=== PATIENT | female | born 1970 | race Caucasian/White ===

== ENCOUNTER 2023-10-26 10:23 | Outpatient (OUT) | payer BC, SELFPAY ==
[2023-10-26 11:02] LABS: Basophils Absolute Auto 0.1 10^3/uL (0.0-0.1); Basophils Percent Auto 1.2 % (0.2-2.0); Eosinophils Absolute Auto 0.2 10^3/uL (0.0-0.7); Eosinophils Percent Auto 2.2 % (0.9-7.0); Hematocrit 42.2 % (36.0-48.0); Hemoglobin 13.2 g/dL (12.0-16.0); Immature Granulocytes Abs Auto 0.04 10^3/uL (0.00-0.03); Immature Granulocytes Pct Auto 0.6 % (0.0-0.5); Lymphocytes Absolute Auto 1.7 10^3/uL (1.2-3.8); Lymphocytes Percent Auto 24.7 % (20.5-60.0); Mean Corpuscular HGB Conc 31.3 g/dL (29.9-35.2); Mean Corpuscular Hemoglobin 28.6 pg (26.7-34.0); Mean Corpuscular Volume 91.5 fL (81.0-99.0); Mean Platelet Volume 8.9 fL (9.5-13.5); Monocytes Absolute Auto 0.5 10^3/uL (0.3-0.8); Monocytes Percent Auto 6.7 % (1.7-12.0); Neutrophils Absolute Auto 4.5 10^3/uL (1.4-6.5); Neutrophils Percent Auto 64.6 % (43.0-75.0); Platelet Count 362 10^3/uL (150-450); Red Blood Count 4.61 10^6/uL (4.20-5.40); Red Cell Distribution Width 13.2 % (11.0-15.0); White Blood Count 6.9 10^3/uL (4.0-11.0)
[2023-10-26 11:26] LABS: Alanine Aminotransferase 47 U/L (14-59); Albumin Globulin Ratio 0.7; Albumin Level 3.1 g/dL (3.4-5.0); Alkaline Phosphatase 75 U/L (46-116); Anion Gap 9.9; Aspartate Amino Transferase 24 U/L (15-37); BUN Creatinine Ratio 10.3; Bilirubin Total 0.5 mg/dL (0.2-1.0); Calcium 8.9 mg/dL (8.5-10.1); Carbon Dioxide 30.9 mmol/L (21.0-32.0); Chloride 106 mmol/L (98-107); Chol HDL Ratio 4.6; Cholesterol 197 mg/dL (<=200); Estimated GFR (African America >60 (>=60); Estimated GFR (Non-African Ame >60 (>=60); Globulin 4.5 g/dL; Glucose 104 mg/dL (74-106); HDL Cholesterol 43 mg/dL (40-60); LDL Cholesterol Calculated 131.8 mg/dL; Potassium 3.8 mmol/L (3.5-5.1); Sodium 143 mmol/L (136-145); Thyroid Stimulating Hormone 5.179 uIU/mL (0.358-3.740); Total Protein 7.6 g/dL (6.4-8.2); Triglycerides 111 mg/dL (<=150); VLDL CHOLESTEROL 22.2 mg/dL
[2023-10-26 12:21] LABS: Estimated Average Glucose 114 mg/dL; Glycohemoglobin A1C 5.6 % (4.5-6.2)
[2023-10-27 14:49] LABS: Occult Blood Negative
== END 2023-10-26 10:24 | disposition home or self-care (01) ==
LOC: LAB 10:27
PROVIDERS: PCP Family Medicine; Visit Provider Family Medicine
DX: Z00.00 Encounter for general adult medical examination without abnormal findings (principal); E78.5 Hyperlipidemia, unspecified; R73.09 Other abnormal glucose; Z12.12 Encounter for screening for malignant neoplasm of rectum; D64.9 Anemia, unspecified; E55.9 Vitamin D deficiency, unspecified
CPT/HCPCS: 36415; 80053; 80061; 82306; 83036; 83540; 84436; 84443; 84481; 85025; G0328

== ENCOUNTER 2023-10-31 07:46 | Outpatient (OUT) | payer BC, SELFPAY ==
--- NOTE | 2023-10-31 07:48 | MM_ITS ---
Patient Name: EUGENE DONOVAN MR#: [id number] : 1970 Exam Date: 10/31/2023 Ordering Doctor: DR Stuart Washington . RADIOLOGY REPORT PROCEDURE: MM TOMOSYNTHESIS SCREENING BI COMPARISON: MG MAMM SCREEN 3D DAVINA CAD, 11/16/2021. MG MAMM SCREEN DAVINA W CAD, 11/15/2020. INDICATIONS: Screening Calculator Name NCI Breast Cancer Risk Assessment Tool 5 Year Breast Cancer Risk 0.80% Lifetime Breast Cancer Risk 6.90% Personal Breast Cancer No Personal Ovarian Cancer No Treatments None Family Cancers Mother with pancreatic cancer at age 71. LOCATION: [facility] BREAST COMPOSITION: Scattered areas fibroglandular density. FINDINGS: DIAGNOSTIC CATEGORY 1--NEGATIVE. NO CHANGE FROM COMPARISON ASSESSMENT. Scattered benign-appearing calcifications are present. Scattered benign-appearing lymph nodes are present. RIGHT BREAST: No significant suspicious finding. LEFT BREAST: No significant suspicious finding. RECOMMENDATIONS: ROUTINE MAMMOGRAM AND CLINICAL EVALUATION IN 12 MONTHS. PLEASE NOTE: A NORMAL MAMMOGRAM DOES NOT EXCLUDE THE POSSIBILITY OF BREAST CANCER. A CLINICALLY SUSPICIOUS PALPABLE LUMP SHOULD BE BIOPSIED. Dictated by: Mick Mccormack MD on 10/31/2023 at 08:26 Approved by: Mick Mccormack MD on 10/31/2023 at 08:27
--- OUTSIDE RECORDS SUMMARY | 2023-10-31 07:49 | XMS_ITS | CCD ---
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 Name Role Phone PHYSICIAN, DEFAULT Unavailable Unavailable PHYSICIAN, DEFAULT Unavailable Unavailable HOY, DR ORTIZ Primary Care Unavailable HOY, DR ORTIZ Admitting Unavailable HOY, DR ORTIZ Attending Unavailable HOY, DR ORTIZ Consulting Unavailable HOY, DR ORTIZ Admitting Unavailable HOY, DR ORTIZ Attending Unavailable HOY, DR ORTIZ Consulting Unavailable HOY, DR ORTIZ Primary Care Unavailable WEST, DR ALONSO Balbuena Consulting Unavailable HOY, DR ORTIZ Primary Care Unavailable KARASIK, DR PERKINS Attending Unavailable KARASIK, DR PERKINS Admitting Unavailable KARASIK, DR PERKINS Consulting Unavailable HOY, DR ORTIZ Admitting Unavailable HOY, DR ORTIZ Attending Unavailable HOY, DR ORTIZ Consulting Unavailable HOY, DR ORTIZ Primary Care Unavailable HOY, DR ORTIZ Primary Care Unavailable KARASIK, DR PERKINS Admitting Unavailable KARASIK, DR PERKINS Attending Unavailable KARASIK, DR PERKINS Consulting Unavailable ZIEBER, DR JAN Saenz Consulting Unavailable Problems Problem Classification Problem Date Documented Date Episodic/Chronic Immunizations and screening for infectious disease (1 source) Encounter for screening for human papillomavirus (HPV); Translations: [ENC SCREENING HUMAN PAPILLOMAVIRUS] Onset: 01-27-2022 Episodic Other screening for suspected conditions (not mental disorders or infectious disease) (8 sources) Encounter for screening for malignant neoplasm of cervix; Translations: [Encounter for screening mammogram for malignant neoplasm of breast] Onset: 11-16-2021 Episodic Residual codes; unclassified (4 sources) Asymptomatic menopausal state; Translations: [ASYMPTOMATIC MENOPAUSAL STATE] Onset: 07-12-2022 Episodic Residual codes; unclassified (1 source) Family history of malignant neoplasm of other organs or systems; Translations: [FAM HX MALIG NEOPLASM OTH ORGN/SYS] Onset: 11-21-2021 Episodic Results Test Name Value Interpretation Reference Range Facility INSULINon 10-20-2022 Insulin 10.1 uIU/mL Normal 2.6-24.9 [facility] Comment on above: Performed By: #### L IPID, TSH, CMP, T7 #### [facility] [address] [address] [address] Merly Larios CBC AUTO DIFFon 10-19-2022 BASO # 0.1 103/ul Normal 0.0-0.1 [facility] Comment on above: Performed By: #### C BC #### [facility] [address] [place] [address] Dr. Merly Larios Basophils/100 WBC (Bld) 1.0 % Normal 0.2-2.0 [facility] Comment on above: Performed By: #### C BC #### [facility] [address] [place] [address] Dr. Merly Larios EO # 0.2 103/ul Normal 0.0-0.7 [facility] Comment on above: Performed By: #### C BC #### [facility] [address] [place] [address] Dr. Merly Larios Eosinophils/100 WBC (Bld) 2.6 % Normal 0.9-7.0 [facility] Comment on above: Performed By: #### C BC #### [facility] [address] [place] [address] Dr. Merly Larios Erythrocyte distribution width (RBC) [Ratio] 12.8 % Normal 11.0-15.0 [facility] Comment on above: Performed By: #### C BC #### [facility] [address] [place] [address] Dr. Merly Larios Hematocrit (Bld) [Volume fraction] 47.7 % Normal 36.0-48.0 [facility] Comment on above: Performed By: #### C BC #### [facility] [address] [place] [address] Dr. Merly Larios Hemoglobin (Bld) [Mass/Vol] 15.0 g/dL Normal 12.0-16.0 [facility] Comment on above: Performed By: #### C BC #### [facility] [address] [place] [address] Dr. Merly Larios IG # 0.02 10e3/ul Normal 0.00-0.03 [facility] Comment on above: Performed By: #### C BC #### [facility] [address] [place] [address] Dr. Merly Larios IG % 0.3 % Normal 0.0-0.5 [facility] Comment on above: Performed By: #### C BC #### [facility] [address] [place] [address] Dr. Merly Larios LYMPH # 1.5 103/ul Normal 1.2-3.8 [facility] Comment on above: Performed By: #### C BC #### [facility] [address] [place] [address] Dr. Merly Larios Lymphocytes/100 WBC (Bld) 26.0 % Normal 20.5-60.0 [facility] Comment on above: Performed By: #### C BC #### [facility] [address] [place] [address] Dr. Merly Larios MANUAL DIFF REQ NO Normal [facility] Comment on above: Performed By: #### C BC #### [facility] [address] [place] [address] Dr. Merly Larios MCH (RBC) [Entitic mass] 28.7 pg Normal 26.7-34.0 [facility] Comment on above: Performed By: #### C BC #### [facility] [address] [place] [address] Dr. Merly Larios MCHC (RBC) [Mass/Vol] 31.4 g/dL Normal 29.9-35.2 [facility] Comment on above: Performed By: #### C BC #### [facility] [address] [place] [address] Dr. Merly Larios MCV (RBC) [Entitic vol] 91.2 fL Normal 81.0-99.0 [facility] Comment on above: Performed By: #### C BC #### [facility] [address] [place] [address] Dr. Merly Larios MONO # 0.6 103/ul Normal 0.3-0.8 [facility] Comment on above: Performed By: #### C BC #### [facility] [address] [place] [address] Dr. Merly Larios Monocytes/100 WBC (Bld) 9.8 % Normal 1.7-12.0 [facility] Comment on above: Performed By: #### C BC #### [facility] [address] [place] [address] Dr. Merly Larios NEUT # 3.5 103/ul Normal 1.4-6.5 [facility] Comment on above: Performed By: #### C BC #### [facility] [address] [place] [address] Dr. Merly Larios Neutrophils/100 WBC (Bld) 60.3 % Normal 43.0-75.0 [facility] Comment on above: Performed By: #### C BC #### [facility] [address] [place] [address] Dr. Merly Larios Platelet mean volume (Bld) [Entitic vol] 9.8 fL Normal 9.5-13.5 [facility] Comment on above: Performed By: #### C BC #### [facility] [address] [place] [address] Dr. Merly Larios PLT 236 103/ul Normal 150-450 [facility] Comment on above: Performed By: #### C BC #### [facility] [address] [place] [address] Dr. Merly Larios RBC 5.23 106/ul Normal 4.20-5.40 [facility] Comment on above: Performed By: #### C BC #### [facility] [address] [place] [address] Dr. Merly Larios WBC 5.7 103/ul Normal 4.0-11.0 [facility] Comment on above: Performed By: #### C BC #### [facility] [address] [place] [address] Dr. Merly Larios FREE THYROXINE INDEX T7on FTI 3.89 Normal 1.30-4.50 [facility] Comment on above: Performed By: #### L IPID, TSH, CMP, T7 #### [facility] [address] [address] [address] Merly Larios T3U 35.0 % Normal 30.0-39.0 [facility] Comment on above: Performed By: #### L IPID, TSH, CMP, T7 #### [facility] [address] [place] [address] Dr. Merly Larios T4 [Mass/Vol] 11.10 ug/dL Normal 4.80-13.90 [facility] Comment on above: Performed By: #### L IPID, TSH, CMP, T7 #### [facility] [address] [address] [address] Merly Larios GLYCOHEMOGLOBIN A1Con 2022 ADA RECOMMENDATION SEE BELOW Normal [facility] Comment on above: Result Comment: ADA RECOMMENDED LIMIT 4.0 - 6.0 ADA THERAPEUTIC TARGET < 7.0 ACTION SUGGESTED > 7.0 Performed By: #### A 1C #### [facility] [address] [place] [address] Dr. Merly Larios Glucose [Mass/Vol] 103 mg/dL Normal [facility] Comment on above: Performed By: #### A 1C #### [facility] [address] [address] [address] Merly Larios HbA1c (Bld) [Mass fraction] 5.2 % Normal 4.5-6.2 [facility] Comment on above: Performed By: #### A 1C #### [facility] [address] [address] [address] Merly Larios IRONon 10-19-2022 Iron [Mass/Vol] 123.0 ug/dL Normal 50.0-170.0 [facility] Comment on above: Performed By: #### L IPID, TSH, CMP, T7 #### [facility] [address] [address] [address] Merly Larios LIPID PROFILEon 10-19-2022 CHOL-HDL RATIO NORM SEE BELOW Normal [facility] Comment on above: Result Comment: 3.3 - 4.4 LOW RISK 4.4 - 7.1 AVERAGE RISK 7.1 - 11.0 MODERATE RISK >11.0 HIGH RISK Performed By: #### L IPID, TSH, CMP, T7 #### [facility] [address] [address] [address] Merly Larios Cholesterol [Mass/Vol] 177 mg/dL Normal <=200 [facility] Comment on above: Performed By: #### L IPID, TSH, CMP, T7 #### [facility] [address] [address] [address] Merly Larios Cholesterol in HDL [Mass/Vol] 53 mg/dL Normal 40-60 [facility] Comment on above: Performed By: #### L IPID, TSH, CMP, T7 #### [facility] [address] [address] [address] Merly Larios Cholesterol in LDL [Mass/Vol] 105.4 mg/dL Normal [facility] Comment on above: Performed By: #### L IPID, TSH, CMP, T7 #### [facility] [address] [address] [address] Merly Larios Cholesterol.total/Cho lesterol in HDL [Mass ratio] 3.3 {ratio} Normal [facility] Comment on above: Performed By: #### L IPID, TSH, CMP, T7 #### [facility] [address] [address] [address] Merly Larios HDL NORMAL > or = 60 mg/dl - LO W CARDIOVASCULAR RISK <40 mg/dl - HIGH CARDIOVASCULAR RISK Normal [facility] Comment on above: Performed By: #### L IPID, TSH, CMP, T7 #### [facility] [address] [address] [address] Merly Larios LDL CALC NORMAL SEE BELOW Normal [facility] Comment on above: Result Comment: <100 mg/dl OPTIMAL 100 - 129 mg/dl NEAR OR ABOVE OPTIMAL 130 - 159 mg/dl BORDERLINE HIGH 160 - 189 mg/dl HIGH >190 mg/dl VERY HIGH Performed By: #### L IPID, TSH, CMP, T7 #### [facility] [address] [address] [address] Merly Larios Triglyceride [Mass/Vol] 93 mg/dL Normal <=150 [facility] Comment on above: Performed By: #### L IPID, TSH, CMP, T7 #### [facility] [address] [place] [address] Dr. Merly Larios VLDL CALC 18.6 mg/dL Normal [facility] Comment on above: Performed By: #### L IPID, TSH, CMP, T7 #### [facility] [address] [place] [address] Dr. Merly Larios OCC BLD IMMUNO SCREENon 10-08 OCCULT BLOOD Negative Normal NEGATIVE [facility] Comment on above: Performed By: #### O BSCRN #### [facility] [address] [place] [address] Dr. Merly Larios PROF 14(COMP METB)on 023 Albumin [Mass/Vol] 4.0 g/dL Normal 3.4-5.0 [facility] Comment on above: Performed By: #### L IPID, TSH, CMP, T7 #### [facility] [address] [place] [address] Dr. Merly Larios Albumin/Globulin [Mass ratio] 1.0 {ratio} Normal [facility] Comment on above: Performed By: #### L IPID, TSH, CMP, T7 #### [facility] [address] [place] [address] Dr. Merly Larios ALP [Catalytic activity/Vol] 104 U/L Normal 46-116 [facility] Comment on above: Performed By: #### L IPID, TSH, CMP, T7 #### [facility] [address] [place] [address] Dr. Merly Larios ALT [Catalytic activity/Vol] 24 U/L Normal 14-59 [facility] Comment on above: Performed By: #### L IPID, TSH, CMP, T7 #### [facility] [address] [place] [address] Dr. Merly Larios Anion gap [Moles/Vol] 12.8 mmol/L Normal [facility] Comment on above: Performed By: #### L IPID, TSH, CMP, T7 #### [facility] [address] [address] [address] Merly Larios AST [Catalytic activity/Vol] 17 U/L Normal 15-37 [facility] Comment on above: Performed By: #### L IPID, TSH, CMP, T7 #### [facility] [address] [address] [address] Merly Larios Bilirubin [Mass/Vol] 0.6 mg/dL Normal 0.2-1.0 [facility] Comment on above: Performed By: #### L IPID, TSH, CMP, T7 #### [facility] [address] [place] [address] Dr. Merly Larios Calcium [Mass/Vol] 9.4 mg/dL Normal 8.5-10.1 [facility] Comment on above: Performed By: #### L IPID, TSH, CMP, T7 #### [facility] [address] [address] [address] Merly Larios Chloride [Moles/Vol] 105 mmol/L Normal 98-107 [facility] Comment on above: Performed By: #### L IPID, TSH, CMP, T7 #### [facility] [address] [address] [address] Merly Larios CO2 [Moles/Vol] 28.3 mmol/L Normal 21.0-32.0 [facility] Comment on above: Performed By: #### L IPID, TSH, CMP, T7 #### [facility] [address] [address] [address] Merly Larios Creatinine [Mass/Vol] 0.75 mg/dL Normal 0.55-1.02 [facility] Comment on above: Performed By: #### L IPID, TSH, CMP, T7 #### [facility] [address] [address] [address] Merly Larios EGFR-AF LIBERIAN >60 Normal >=60 [facility] Comment on above: Performed By: #### L IPID, TSH, CMP, T7 #### [facility] [address] [address] [address] Merly Larios EGFR-NON AF LIBERIAN >60 Normal >=60 [facility] Comment on above: Performed By: #### L IPID, TSH, CMP, T7 #### [facility] [address] [place] [address] Dr. Merly Larios Globulin (S) [Mass/Vol] 3.9 g/dL Normal [facility] Comment on above: Performed By: #### L IPID, TSH, CMP, T7 #### [facility] [address] [place] [address] Dr. Merly Larios Glucose [Mass/Vol] 102 mg/dL Normal 74-106 [facility] Comment on above: Performed By: #### L IPID, TSH, CMP, T7 #### [facility] [address] [place] [address] Dr. Merly Larios Potassium [Moles/Vol] 4.1 mmol/L Normal 3.5-5.1 [facility] Comment on above: Performed By: #### L IPID, TSH, CMP, T7 #### [facility] [address] [place] [address] Dr. Merly Larios Protein [Mass/Vol] 7.9 g/dL Normal 6.4-8.2 [facility] Comment on above: Performed By: #### L IPID, TSH, CMP, T7 #### [facility] [address] [address] [address] Merly Larios Sodium [Moles/Vol] 142 mmol/L Normal 136-145 [facility] Comment on above: Performed By: #### L IPID, TSH, CMP, T7 #### [facility] [address] [place] [address] Dr. Merly Larios Urea nitrogen [Mass/Vol] 14.0 mg/dL Normal 7.0-18.0 [facility] Comment on above: Performed By: #### L IPID, TSH, CMP, T7 #### [facility] [address] [place] [address] Dr. Merly Larios Urea nitrogen/Creatinine [Mass ratio] 18.7 mg/mg Normal [facility] Comment on above: Performed By: #### L IPID, TSH, CMP, T7 #### [facility] [address] [address] [address] Merly Larios TSHon 10-19-2022 TSH 0.287 uIU/mL Critically low 0.358-3.740 [facility] Comment on above: Performed By: #### L IPID, TSH, CMP, T7 #### [facility] [address] [address] [address] Merly Larios XR DEXA BONE DENSITYon 07-12 XR DEXA BONE DENSITY EXAMINATION: XR DEX A BONE DENSITY, 07/12/2022 9:07 AM EDT HISTORY: Menopause present COMPARISON: None. TECHNIQUE: Dual-energy X-ray absorptiometry (DEXA) bone density study performed for the axial skeleton. FINDINGS: SPINE ANALYSIS: Average bone mineral density is 1.298 g/cm2. T-score (standard deviation relative to young adult mean): 1.0 . HIP ANALYSIS: Lowest bone mineral density is within the right femoral trochanter, 0.853 g/cm2. T-score (standard deviation relative to young adult mean): 0.0 . IMPRESSION: [employer] Classification: Normal - Low Fracture Risk Electronically authenticated by: JAN REYES Date: 2022-07-12 09:33 [facility] PAP ACOG PANEL 2: 30 to 65on 02-01-2022 . . Normal [facility] Comment on above: Result Comment: Perf ormed at: WB Performed By: #### [id number] #### [facility] [address] [place] [address] Dr. Merly Larios Age Gdln ACOG Testing 30-66 [facility] Comment on above: Performed By: #### [id number] #### [facility] [address] [address] [address] Merly Larios DIAGNOSIS: Comment [facility] Comment on above: Result Comment: NEGA TIVE FOR INTRAEPITHELIAL LESION OR MALIGNANCY. Performed at: WB Performed By: #### [id number] #### [facility] [address] [place] [address] Dr. Merly Larios HPV Aptima Negative Normal Negative [facility] Comment on above: Result Comment: This nucleic acid amplification test detects fourteen high-risk HPV types (16,18,31,33,35,39,45,51,52,56,58,59,66,68) without differentiation. Performed at: =G Performed By: #### [id number] #### [facility] [address] [place] [address] Dr. Merly Larios Methodology: CTIM Normal [facility] Comment on above: Result Comment: The Thin Prep(R) Fuel Pilot Engineer was unable to read this specimen. Therefore a manual review was performed. Performed at: WB Performed By: #### [id number] #### [facility] [address] [place] [address] Dr. Merly Larios Note: Comment Normal [facility] Comment on above: Result Comment: The Pap smear is a screening test designed to aid in the detection of premalignant and malignant conditions of the uterine cervix. It is not a diagnostic procedure and should not be used as the sole means of detecting cervical cancer. Both false-positive and false-negative reports do occur. . Performed at: WB Performed By: #### [id number] #### [facility] [address] [place] [address] Dr. Merly Larios Performed by: Comment Normal [facility] Comment on above: Result Comment: Shaq Carvalho, Optical Lab Technician (ASCP) Performed at: WB Performed By: #### [id number] #### [facility] [address] [place] [address] Dr. Merly Larios Specimen adequacy: Comment Normal [facility] Comment on above: Result Comment: Sati sfactory for evaluation. Endocervical and/or squamous metaplastic cells (endocervical component) are present. Performed at: WB Performed By: #### [id number] #### [facility] [address] [place] [address] Dr. Merly Larios MG MAMM SCREEN 3D DAVINA CADon 11-16-2021 MG MAMM SCREEN 3D DAVINA CAD Patient: EUGENE DONOVAN Exam Date: 11/16/2021 : 1970 Gender:F Ordering : DR ANGEL MAXWELL . Admission #: [id number] Family : Order #: [id number] CLICK HERE TO VIEW EXAM RADIOLOGY REPORT PROCEDURE: MAMMOGRAM SCREENING 3D BILATERAL CAD COMPARISON: MG MAMM SCREEN DAVINA W CAD, 08/30/2018. MG MAMM SCREEN DAVINA W CAD, 11/15/2020. INDICATIONS: Screening mammography Calculator Name NCI Breast Cancer Risk Assessment Tool 5 Year Breast Cancer Risk 0.80% Lifetime Breast Cancer Risk 7.10% Personal Breast Cancer No Personal Ovarian Cancer No Treatments None Family Cancers Mother with pancreatic cancer at age 71. LOCATION: [facility] BREAST COMPOSITION: Scattered areas fibroglandular density. FINDINGS: DIAGNOSTIC CATEGORY 1--NEGATIVE. NO CHANGE FROM COMPARISON ASSESSMENT. Scattered benign-appearing calcifications are present. Scattered benign-appearing lymph nodes are present. RIGHT BREAST: No significant suspicious finding. LEFT BREAST: No significant suspicious finding. RECOMMENDATIONS: ROUTINE MAMMOGRAM AND CLINICAL EVALUATION IN 12 MONTHS. PLEASE NOTE: A NORMAL MAMMOGRAM DOES NOT EXCLUDE THE POSSIBILITY OF BREAST CANCER. A CLINICALLY SUSPICIOUS PALPABLE LUMP SHOULD BE BIOPSIED. Dictated by: Alonso Mccormack MD on 11/16/2021 at 09:03 Approved by: Alonso Mccormack MD on 11/16/2021 at 09:14 Normal [facility] INSULINon 10-26-2021 Insulin 13.6 uIU/mL Normal 2.6-24.9 [facility] Comment on above: Performed By: #### L IPID, TSH, CMP, T7 #### [facility] [address] [address] [address] Merly Larios CBC AUTO DIFFon 10-25-2021 BASO # 0.1 103/ul Normal 0.0-0.1 [facility] Comment on above: Performed By: #### L IPID, TSH, CMP, T7 #### [facility] [address] [address] [address] Merly Larios Basophils/100 WBC (Bld) 1.1 % Normal 0.2-2.0 [facility] Comment on above: Performed By: #### L IPID, TSH, CMP, T7 #### [facility] [address] [place] [address] Dr. Merly Larios EO # 0.2 103/ul Normal 0.0-0.7 [facility] Comment on above: Performed By: #### L IPID, TSH, CMP, T7 #### [facility] [address] [place] [address] Dr. Merly Larios Eosinophils/100 WBC (Bld) 3.0 % Normal 0.9-7.0 [facility] Comment on above: Performed By: #### L IPID, TSH, CMP, T7 #### [facility] [address] [place] [address] Dr. Merly Larios Erythrocyte distribution width (RBC) [Ratio] 12.7 % Normal 11.0-15.0 [facility] Comment on above: Performed By: #### L IPID, TSH, CMP, T7 #### [facility] [address] [place] [address] Dr. Merly Larios Hematocrit (Bld) [Volume fraction] 43.6 % Normal 36.0-48.0 [facility] Comment on above: Performed By: #### L IPID, TSH, CMP, T7 #### [facility] [address] [place], [place] [address] Dr. Merly Larios Hemoglobin (Bld) [Mass/Vol] 14.2 g/dL Normal 12.0-16.0 [facility] Comment on above: Performed By: #### L IPID, TSH, CMP, T7 #### [facility] [address] [place] [address] Dr. Merly Larios IG # 0.01 10e3/ul Normal 0.00-0.03 [facility] Comment on above: Performed By: #### L IPID, TSH, CMP, T7 #### [facility] [address] [place] [address] Dr. Merly Larios IG % 0.2 % Normal 0.0-0.5 [facility] Comment on above: Performed By: #### L IPID, TSH, CMP, T7 #### [facility] [address] [place] [address] Dr. Merly Larios LYMPH # 1.5 103/ul Normal 1.2-3.8 [facility] Comment on above: Performed By: #### L IPID, TSH, CMP, T7 #### [facility] [address] [address] [address] Merly Larios Lymphocytes/100 WBC (Bld) 27.5 % Normal 20.5-60.0 [facility] Comment on above: Performed By: #### L IPID, TSH, CMP, T7 #### [facility] [address] [place] [address] Dr. Merly Larios MANUAL DIFF REQ NO Normal [facility] Comment on above: Performed By: #### L IPID, TSH, CMP, T7 #### [facility] [address] [place] [address] Dr. Merly Larios MCH (RBC) [Entitic mass] 28.3 pg Normal 26.7-34.0 [facility] Comment on above: Performed By: #### L IPID, TSH, CMP, T7 #### [facility] [address] [place] [address] Dr. Merly Larios MCHC (RBC) [Mass/Vol] 32.6 g/dL Normal 29.9-35.2 [facility] Comment on above: Performed By: #### L IPID, TSH, CMP, T7 #### [facility] [address] [place] [address] Dr. Merly Larios MCV (RBC) [Entitic vol] 87.0 fL Normal 81.0-99.0 [facility] Comment on above: Performed By: #### L IPID, TSH, CMP, T7 #### [facility] [address] [place] [address] Dr. Merly Larios MONO # 0.5 103/ul Normal 0.3-0.8 [facility] Comment on above: Performed By: #### L IPID, TSH, CMP, T7 #### [facility] [address] [place] [address] Dr. Merly Larios Monocytes/100 WBC (Bld) 9.1 % Normal 1.7-12.0 [facility] Comment on above: Performed By: #### L IPID, TSH, CMP, T7 #### [facility] [address] [address] [address] Merly Larios NEUT # 3.1 103/ul Normal 1.4-6.5 [facility] Comment on above: Performed By: #### L IPID, TSH, CMP, T7 #### [facility] [address] [address] [address] Merly Larios Neutrophils/100 WBC (Bld) 59.1 % Normal 43.0-75.0 [facility] Comment on above: Performed By: #### L IPID, TSH, CMP, T7 #### [facility] [address] [place] [address] Dr. Merly Larios Platelet mean volume (Bld) [Entitic vol] 9.5 fL Normal 9.5-13.5 [facility] Comment on above: Performed By: #### L IPID, TSH, CMP, T7 #### [facility] [address] [place] [address] Dr. Merly Larios PLT 208 103/ul Normal 150-450 [facility] Comment on above: Performed By: #### L IPID, TSH, CMP, T7 #### [facility] [address] [place] [address] Dr. Mrely Larios RBC 5.01 106/ul Normal 4.20-5.40 [facility] Comment on above: Performed By: #### L IPID, TSH, CMP, T7 #### [facility] [address] [place] [address] Dr. Merly Larios WBC 5.3 103/ul Normal 4.0-11.0 [facility] Comment on above: Performed By: #### L IPID, TSH, CMP, T7 #### [facility] [address] [place] [address] Dr. Merly Larios FREE THYROXINE INDEX T7on FTI 3.65 Normal [facility] Comment on above: Performed By: #### L IPID, TSH, CMP, T7 #### [facility] [address] [address] [address] Merly Larios T3U 32.0 % Normal 23.5-40.5 [facility] Comment on above: Performed By: #### L IPID, TSH, CMP, T7 #### [facility] [address] [address] [address] Merly Larios T4 [Mass/Vol] 11.40 ug/dL Critically high 5.53-11.00 [facility] Comment on above: Performed By: #### L IPID, TSH, CMP, T7 #### [facility] [address] [address] [address] Merly Larios GLYCOHEMOGLOBIN A1Con 2021 ADA RECOMMENDATION ADA THERAPEUTIC TARGET 6.0 - 7.0 ACTION SUGGESTED > 7.0 Normal [facility] Comment on above: Performed By: #### A 1C #### [facility] [address] [address] [address] Merly Larios Glucose [Mass/Vol] 105 mg/dL Normal [facility] Comment on above: Performed By: #### A 1C #### [facility] [address] [address] [address] Merly Larios HbA1c (Bld) [Mass fraction] 5.3 % Normal <=6.0 [facility] Comment on above: Performed By: #### A 1C #### [facility] [address] [address] [address] Merly Larios IRONon 10-25-2021 Iron [Mass/Vol] 99.0 ug/dL Normal 37.0-170.0 [facility] Comment on above: Performed By: #### L IPID, TSH, CMP, T7 #### [facility] [address] [address] [address] Merly Larios LIPID PROFILEon 10-25-2021 CHOL-HDL RATIO NORM SEE BELOW Normal [facility] Comment on above: Result Comment: 3.3 - 4.4 LOW RISK 4.4 - 7.1 AVERAGE RISK 7.1 - 11.0 MODERATE RISK >11.0 HIGH RISK Performed By: #### L IPID, TSH, CMP, T7 #### [facility] [address] [address] [address] Merly Larios Cholesterol [Mass/Vol] 174 mg/dL Normal <=200 [facility] Comment on above: Performed By: #### L IPID, TSH, CMP, T7 #### [facility] [address] [address] [address] Merly Larios Cholesterol in HDL [Mass/Vol] 50 mg/dL Normal [facility] Comment on above: Performed By: #### L IPID, TSH, CMP, T7 #### [facility] [address] [address] [address] Merly Larios Cholesterol in LDL [Mass/Vol] 105.2 mg/dL Normal [facility] Comment on above: Performed By: #### L IPID, TSH, CMP, T7 #### [facility] [address] [address] [address] Merly Larios Cholesterol.total/Cho lesterol in HDL [Mass ratio] 3.5 {ratio} Normal [facility] Comment on above: Performed By: #### L IPID, TSH, CMP, T7 #### [facility] [address] [address] [address] Merly Larios HDL NORMAL > or = 60 mg/dl - LO W CARDIOVASCULAR RISK <40 mg/dl - HIGH CARDIOVASCULAR RISK Normal [facility] Comment on above: Performed By: #### L IPID, TSH, CMP, T7 #### [facility] [address] [address] [address] Merly Larios LDL CALC NORMAL SEE BELOW Normal [facility] Comment on above: Result Comment: <100 mg/dl OPTIMAL 100 - 129 mg/dl NEAR OR ABOVE OPTIMAL 130 - 159 mg/dl BORDERLINE HIGH 160 - 189 mg/dl HIGH >190 mg/dl VERY HIGH Performed By: #### L IPID, TSH, CMP, T7 #### [facility] [address] [address] [address] Merly Larios Triglyceride [Mass/Vol] 94 mg/dL Normal <=150 [facility] Comment on above: Performed By: #### L IPID, TSH, CMP, T7 #### [facility] [address] [address] [address] Merly Larios VLDL CALC 18.8 mg/dL Normal [facility] Comment on above: Performed By: #### L IPID, TSH, CMP, T7 #### [facility] [address] [address] [address] Merly Larios OCC BLD IMMUNO SCREENon 10-08 OCCULT BLOOD Negative Normal NEGATIVE [facility] Comment on above: Performed By: #### O BSCRN #### [facility] [address] [address] [address] Merly Larios PROF 14(COMP METB)on 022 Albumin [Mass/Vol] 3.8 g/dL Normal 3.5-5.0 [facility] Comment on above: Performed By: #### L IPID, TSH, CMP, T7 #### [facility] [address] [place] [address] Dr. Merly Larios Albumin/Globulin [Mass ratio] 1.0 {ratio} Normal [facility] Comment on above: Performed By: #### L IPID, TSH, CMP, T7 #### [facility] [address] [address] [address] Merly Larios ALP [Catalytic activity/Vol] 98 U/L Normal 38-126 [facility] Comment on above: Performed By: #### L IPID, TSH, CMP, T7 #### [facility] [address] [address] [address] Merly Larios ALT [Catalytic activity/Vol] 30 U/L Normal 9-52 [facility] Comment on above: Performed By: #### L IPID, TSH, CMP, T7 #### [facility] [address] [address] [address] Merly Larios Anion gap [Moles/Vol] 14.1 mmol/L Normal [facility] Comment on above: Performed By: #### L IPID, TSH, CMP, T7 #### [facility] [address] [address] [address] Merly Larios AST [Catalytic activity/Vol] 16 U/L Normal 14-36 [facility] Comment on above: Performed By: #### L IPID, TSH, CMP, T7 #### [facility] [address] [address] [address] Merly Larios Bilirubin [Mass/Vol] 0.4 mg/dL Normal 0.2-1.3 [facility] Comment on above: Performed By: #### L IPID, TSH, CMP, T7 #### [facility] [address] [address] [address] Merly Larios Calcium [Mass/Vol] 9.8 mg/dL Normal 8.4-10.2 [facility] Comment on above: Performed By: #### L IPID, TSH, CMP, T7 #### [facility] [address] [place] [address] Dr. Merly Larios Chloride [Moles/Vol] 106 mmol/L Normal 98-107 [facility] Comment on above: Performed By: #### L IPID, TSH, CMP, T7 #### [facility] [address] [place] [address] Dr. Merly Larios CO2 [Moles/Vol] 26.1 mmol/L Normal 22.0-30.0 [facility] Comment on above: Performed By: #### L IPID, TSH, CMP, T7 #### [facility] [address] [place] [address] Dr. Merly Larios Creatinine [Mass/Vol] 0.80 mg/dL Normal 0.52-1.04 [facility] Comment on above: Performed By: #### L IPID, TSH, CMP, T7 #### [facility] [address] [place] [address] Dr. Merly Larios EGFR-AF LIBERIAN >60 Normal >=60 [facility] Comment on above: Performed By: #### L IPID, TSH, CMP, T7 #### [facility] [address] [place] [address] Dr. Merly Larios EGFR-NON AF LIBERIAN >60 Normal >=60 [facility] Comment on above: Performed By: #### L IPID, TSH, CMP, T7 #### [facility] [address] [place] [address] Dr. Merly Larios Globulin (S) [Mass/Vol] 3.8 g/dL Normal [facility] Comment on above: Performed By: #### L IPID, TSH, CMP, T7 #### [facility] [address] [place] [address] Dr. Merly Larios Glucose [Mass/Vol] 109 mg/dL Critically high 74-106 T [facility] Comment on above: Performed By: #### L IPID, TSH, CMP, T7 #### [facility] [address] [place] [address] Dr. Merly Larios Potassium [Moles/Vol] 4.2 mmol/L Normal 3.4-5.0 [facility] Comment on above: Performed By: #### L IPID, TSH, CMP, T7 #### [facility] [address] [place] [address] Dr. Merly Larios Protein [Mass/Vol] 7.6 g/dL Normal 6.1-8.2 [facility] Comment on above: Performed By: #### L IPID, TSH, CMP, T7 #### [facility] [address] [place] [address] Dr. Merly Larios Sodium [Moles/Vol] 142 mmol/L Normal 137-145 [facility] Comment on above: Performed By: #### L IPID, TSH, CMP, T7 #### [facility] [address] [place] [address] Dr. Merly Larios Urea nitrogen [Mass/Vol] 13.0 mg/dL Normal 7.0-17.0 [facility] Comment on above: Performed By: #### L IPID, TSH, CMP, T7 #### [facility] [address] [place] [address] Dr. Merly Larios Urea nitrogen/Creatinine [Mass ratio] 16.2 mg/mg Normal [facility] Comment on above: Performed By: #### L IPID, TSH, CMP, T7 #### [facility] [address] [place] [address] Dr. Merly Larios TSHon 10-25-2021 TSH 0.315 uIU/mL Critically low 0.470-4.680 [facility] Comment on above: Performed By: #### L IPID, TSH, CMP, T7 #### [facility] [address] [place], [place] [address] Dr. Merly Larios TSH RANGE SEE BELOW Normal [facility] Comment on above: Result Comment: <0.3 4 UIU/ml HYPERTHYROID 0.34-5.60 UIU/ml EUTHYROID >5.60 UIU/ml HYPOTHYROID Performed By: #### L IPID, TSH, CMP, T7 #### [facility] [address] [place], [place] [address] Dr. Merly Larios Encounters Encounter Date Encounter Type Care Provider Facility Start: 10-19-2022 End: 10-20-[address] ANGEL MAXWELL Facility:[facility] Start: 07-12-2022 End: 07-13-[address] ANGEL MAXWELL Facility:[facility] Start: 01-26-2022 End: 01-26-[address] ANGEL MAXWELL Facility:[facility] Start: 11-16-2021 End: 11-17-[address] ANGEL MAXWELL Facility:[facility] Start: 10-27-2021 Encounter for genera l adult medical examination without abnormal findings DR ANGEL MAXWELL [facility] Start: 10-25-2021 End: 10-26-[address] ANGEL MAXWELL Facility:[facility] Start: 10-25-2021 End: 10-26-2021 Encounter for general adult medical examination without abnormal findings DR ANGEL MAXWELL Facility:[facility] Start: 04-08-2018 End: 04-09-2018 Ambulatory DEFAULT PHYSICIAN Facility:[facility] Payers Date Payer Category Payer Unknown [id number] 2.16.84 [id number] 1971 Unknown [id number] 2.16.84 [id number] 1971 Unknown [id number] 2.16.84 [id number] 1971 Unknown [id number] 2.16.84 [id number] 1971 Unknown [id number] 2.16.84 [id number] 1959 Private Health Insurance [id number] 1958 Unknown [id number] Unknown Summary Purpose Family History No Family History Records FoundNo Family History Records Found Advance Directives No Advanced Directives Records FoundNo Advanced Directives Records Found Additional Source Comments INFORMATION SOURCE (unrecogn ized section and content) DATE CREATED AUTHOR 04/09/2018 [facility] [place] [facility] DATE CREATED AUTHOR AUTHOR'S ORGANIZ ATION 10/20/2022 [facility] FOR RECORDS PERTAINING TO PATIENTS WHO ARE OR HAVE BEEN ENROLLED IN A CHEMICAL DEPENDENCY/SUBSTANCEABUSE PROGRAM, SOME INFORMATION MAY BE OMITTED. This clinical summary was aggregated from multiple sources. Caution should be exercised in using it in the provision of clinical care. This summary normalizes information from multiple sources, and as a consequence, information in this document may materially change the coding, format and clinical context of patient data. In addition, data may be omitted in some cases. CLINICAL DECISIONS SHOULD BE BASED ON THE PRIMARY CLINICAL RECORDS. [facility]. provides no warranty or guarantee of the accuracy or completeness of information in this document.
== END 2023-10-31 07:47 | disposition home or self-care (01) ==
LOC: MAMMO 07:46
PROVIDERS: PCP Family Medicine; Visit Provider Family Medicine
DX: Z00.00 Encounter for general adult medical examination without abnormal findings (principal); Z12.31 Encounter for screening mammogram for malignant neoplasm of breast; Z80.8 Family history of malignant neoplasm of other organs or systems
CPT/HCPCS: 77063; 77067

== ENCOUNTER 2023-11-27 07:47 | Outpatient (OUT) | payer BC, SELFPAY ==
--- OUTSIDE RECORDS SUMMARY | 2023-11-27 07:54 | XMS_ITS | CCD ---
Author Name Unknown Address [facility] [address] [place] [address] Organization [facility] Care Team Providers Care Paralegal Specialist Name Role Phone PHYSICIAN, DEFAULT Unavailable Unavailable [...] INSULINon 10-20-2022 Insulin 10.1 uIU/mL Normal 2.6-24.9 [facility] Comment on above: Performed By: #### L IPID, TSH, CMP, T7 #### [facility] [address] [address] [address] Merly Larios CBC AUTO DIFFon 10-19-2022 BASO # 0.1 103/ul Normal 0.0-0.1 [facility] Comment on above: Performed By: #### C BC #### [facility] [address] [place] [address] Dr. Merly Larios Basophils/100 WBC (Bld) 1.0 % Normal 0.2-2.0 [facility] Comment on above: Performed By: #### C BC #### [facility] [address] [place] [address] Dr. Merly Larios EO # 0.2 103/ul Normal 0.0-0.7 [facility] Comment on above: Performed By: #### C BC #### [facility] [address] [place] [address] Dr. Merly Larios Eosinophils/100 WBC (Bld) 2.6 % Normal 0.9-7.0 [facility] Comment on above: Performed By: #### C BC #### [facility] [address] [place] [address] Dr. eMrly Larios Erythrocyte distribution width (RBC) [Ratio] 12.8 % Normal 11.0-15.0 [facility] Comment on above: Performed By: #### C BC #### [facility] [address] [place] [address] Dr. Merly Larios Hematocrit (Bld) [Volume fraction] 47.7 % Normal 36.0-48.0 [facility] Comment on above: Performed By: #### C BC #### [facility] [address] [place] [address] Dr. Merly Larios Hemoglobin (Bld) [Mass/Vol] 15.0 g/dL Normal 12.0-16.0 [facility] Comment on above: Performed By: #### C BC #### [facility] [address] [place] [address] Dr. Merly Larios IG # 0.02 10e3/ul Normal 0.00-0.03 [facility] Comment on above: Performed By: #### C BC #### [facility] [address] [place] [address] Dr. Merly Larios IG % 0.3 % Normal 0.0-0.5 [facility] Comment on above: Performed By: #### C BC #### [facility] [address] [place] [address] Dr. Merly Larios LYMPH # 1.5 103/ul Normal 1.2-3.8 [facility] Comment on above: Performed By: #### C BC #### [facility] [address] [place] [address] Dr. Merly Larios Lymphocytes/100 WBC (Bld) 26.0 % Normal 20.5-60.0 [facility] Comment on above: Performed By: #### C BC #### [facility] [address] [place] [address] Dr. Merly Larios MANUAL DIFF REQ NO Normal [facility] Comment on above: Performed By: #### C BC #### [facility] [address] [place] [address] Dr. Merly Larios MCH (RBC) [Entitic mass] 28.7 pg Normal 26.7-34.0 [facility] Comment on above: Performed By: #### C BC #### [facility] [address] [place] [address] Dr. Merly Larios MCHC (RBC) [Mass/Vol] 31.4 g/dL Normal 29.9-35.2 [facility] Comment on above: Performed By: #### C BC #### [facility] [address] [place] [address] Dr. Merly Larios MCV (RBC) [Entitic vol] 91.2 fL Normal 81.0-99.0 [facility] Comment on above: Performed By: #### C BC #### [facility] [address] [place] [address] Dr. Merly Larios MONO # 0.6 103/ul Normal 0.3-0.8 [facility] Comment on above: Performed By: #### C BC #### [facility] [address] [place] [address] Dr. Merly Larios Monocytes/100 WBC (Bld) 9.8 % Normal 1.7-12.0 [facility] Comment on above: Performed By: #### C BC #### [facility] [address] [place] [address] Dr. Merly Larios NEUT # 3.5 103/ul Normal 1.4-6.5 [facility] Comment on above: Performed By: #### C BC #### [facility] [address] [place] [address] Dr. Merly Larios Neutrophils/100 WBC (Bld) 60.3 % Normal 43.0-75.0 [facility] Comment on above: Performed By: #### C BC #### [facility] [address] [place] [address] Dr. Merly Larios Platelet mean volume (Bld) [Entitic vol] 9.8 fL Normal 9.5-13.5 [facility] Comment on above: Performed By: #### C BC #### [facility] [address] [place] [address] Dr. Merly Larios PLT 236 103/ul Normal 150-450 [facility] Comment on above: Performed By: #### C BC #### [facility] [address] [place] [address] Dr. Merly Larios RBC 5.23 106/ul Normal 4.20-5.40 [facility] Comment on above: Performed By: #### C BC #### [facility] [address] [place] [address] Dr. Merly Larios WBC 5.7 103/ul Normal 4.0-11.0 [facility] Comment on above: Performed By: #### C BC #### [facility] [address] [place] [address] Dr. Merly Larios FREE THYROXINE INDEX T7on FTI 3.89 Normal 1.30-4.50 [facility] Comment on above: Performed By: #### L IPID, TSH, CMP, T7 #### [facility] [address] [address] [address] Merly Larios T3U 35.0 % Normal 30.0-39.0 [facility] Comment on above: Performed By: #### L IPID, TSH, CMP, T7 #### [facility] [address] [place] [address] Dr. Merly Larios T4 [Mass/Vol] 11.10 ug/dL Normal 4.80-13.90 [facility] Comment on above: Performed By: #### L IPID, TSH, CMP, T7 #### [facility] [address] [address] [address] Merly Larios GLYCOHEMOGLOBIN A1Con 2022 ADA RECOMMENDATION SEE BELOW Normal [facility] Comment on above: Result Comment: ADA RECOMMENDED LIMIT 4.0 - 6.0 ADA THERAPEUTIC TARGET < 7.0 ACTION SUGGESTED > 7.0 Performed By: #### A 1C #### [facility] [address] [place] [address] Dr. Merly Larios Glucose [Mass/Vol] 103 mg/dL Normal [facility] Comment on above: Performed By: #### A 1C #### [facility] [address] [address] [address] Merly Larios HbA1c (Bld) [Mass fraction] 5.2 % Normal 4.5-6.2 [facility] Comment on above: Performed By: #### A 1C #### [facility] [address] [address] [address] Merly Larios IRONon 10-19-2022 Iron [Mass/Vol] 123.0 ug/dL Normal 50.0-170.0 [facility] Comment on above: Performed By: #### L IPID, TSH, CMP, T7 #### [facility] [address] [address] [address] Merly Larios LIPID PROFILEon 10-19-2022 CHOL-HDL RATIO NORM SEE BELOW Normal [facility] Comment on above: Result Comment: 3.3 - 4.4 LOW RISK 4.4 - 7.1 AVERAGE RISK 7.1 - 11.0 MODERATE RISK >11.0 HIGH RISK Performed By: #### L IPID, TSH, CMP, T7 #### [facility] [address] [address] [address] eMrly Larios Cholesterol [Mass/Vol] 177 mg/dL Normal <=200 [facility] Comment on above: Performed By: #### L IPID, TSH, CMP, T7 #### [facility] [address] [address] [address] Merly Larios Cholesterol in HDL [Mass/Vol] 53 mg/dL Normal 40-60 [facility] Comment on above: Performed By: #### L IPID, TSH, CMP, T7 #### [facility] [address] [address] [address] Merly Larios Cholesterol in LDL [Mass/Vol] 105.4 mg/dL Normal [facility] Comment on above: Performed By: #### L IPID, TSH, CMP, T7 #### [facility] [address] [address] [address] Merly Larios Cholesterol.total/Cho lesterol in HDL [Mass ratio] 3.3 {ratio} Normal [facility] Comment on above: Performed By: #### L IPID, TSH, CMP, T7 #### [facility] [address] [address] [address] Merly Larios HDL NORMAL > or = 60 mg/dl - LO W CARDIOVASCULAR RISK <40 mg/dl - HIGH CARDIOVASCULAR RISK Normal [facility] Comment on above: Performed By: #### L IPID, TSH, CMP, T7 #### [facility] [address] [address] [address] Merly Larios LDL CALC NORMAL SEE BELOW Normal [facility] Comment on above: Result Comment: <100 mg/dl OPTIMAL 100 - 129 mg/dl NEAR OR ABOVE OPTIMAL 130 - 159 mg/dl BORDERLINE HIGH 160 - 189 mg/dl HIGH >190 mg/dl VERY HIGH Performed By: #### L IPID, TSH, CMP, T7 #### [facility] [address] [address] [address] Merly Larios Triglyceride [Mass/Vol] 93 mg/dL Normal <=150 [facility] Comment on above: Performed By: #### L IPID, TSH, CMP, T7 #### [facility] [address] [place] [address] Dr. Merly Larios VLDL CALC 18.6 mg/dL Normal [facility] Comment on above: Performed By: #### L IPID, TSH, CMP, T7 #### [facility] [address] [place] [address] Dr. Merly Larios OCC BLD IMMUNO SCREENon 10-08 OCCULT BLOOD Negative Normal NEGATIVE [facility] Comment on above: Performed By: #### O BSCRN #### [facility] [address] [place] [address] Dr. Merly Larios PROF 14(COMP METB)on 023 Albumin [Mass/Vol] 4.0 g/dL Normal 3.4-5.0 [facility] Comment on above: Performed By: #### L IPID, TSH, CMP, T7 #### [facility] [address] [place] [address] Dr. Merly Larios Albumin/Globulin [Mass ratio] 1.0 {ratio} Normal [facility] Comment on above: Performed By: #### L IPID, TSH, CMP, T7 #### [facility] [address] [place] [address] Dr. Merly Larios ALP [Catalytic activity/Vol] 104 U/L Normal 46-116 [facility] Comment on above: Performed By: #### L IPID, TSH, CMP, T7 #### [facility] [address] [place] [address] Dr. Merly Larios ALT [Catalytic activity/Vol] 24 U/L Normal 14-59 [facility] Comment on above: Performed By: #### L IPID, TSH, CMP, T7 #### [facility] [address] [place] [address] Dr. Merly Larios Anion gap [Moles/Vol] 12.8 mmol/L Normal Th e [facility] Comment on above: Performed By: #### L IPID, TSH, CMP, T7 #### [facility] [address] [address] [address] Merly Larios AST [Catalytic activity/Vol] 17 U/L Normal 15-37 [facility] Comment on above: Performed By: #### L IPID, TSH, CMP, T7 #### [facility] [address] [address] [address] Merly Larios Bilirubin [Mass/Vol] 0.6 mg/dL Normal 0.2-1.0 [facility] Comment on above: Performed By: #### L IPID, TSH, CMP, T7 #### [facility] [address] [place] [address] Dr. Merly Larios Calcium [Mass/Vol] 9.4 mg/dL Normal 8.5-10.1 [facility] Comment on above: Performed By: #### L IPID, TSH, CMP, T7 #### [facility] [address] [address] [address] Merly Larios Chloride [Moles/Vol] 105 mmol/L Normal 98-107 [facility] Comment on above: Performed By: #### L IPID, TSH, CMP, T7 #### [facility] [address] [address] [address] Merly Larios CO2 [Moles/Vol] 28.3 mmol/L Normal 21.0-32.0 [facility] Comment on above: Performed By: #### L IPID, TSH, CMP, T7 #### [facility] [address] [address] [address] Merly Larios Creatinine [Mass/Vol] 0.75 mg/dL Normal 0.55-1.02 [facility] Comment on above: Performed By: #### L IPID, TSH, CMP, T7 #### [facility] [address] [address] [address] Merly Larios EGFR-AF URUGUAYAN >60 Normal >=60 [facility] Comment on above: Performed By: #### L IPID, TSH, CMP, T7 #### [facility] [address] [address] [address] Merly Larios EGFR-NON AF URUGUAYAN >60 Normal >=60 [facility] Comment on above: Performed By: #### L IPID, TSH, CMP, T7 #### [facility] [address] [place] [address] Dr. Merly Larios Globulin (S) [Mass/Vol] 3.9 g/dL Normal [facility] Comment on above: Performed By: #### L IPID, TSH, CMP, T7 #### [facility] [address] [place] [address] Dr. Merly Larios Glucose [Mass/Vol] 102 mg/dL Normal 74-106 [facility] Comment on above: Performed By: #### L IPID, TSH, CMP, T7 #### [facility] [address] [place] [address] Dr. Merly Larios Potassium [Moles/Vol] 4.1 mmol/L Normal 3.5-5.1 [facility] Comment on above: Performed By: #### L IPID, TSH, CMP, T7 #### [facility] [address] [place] [address] Dr. Merly Larios Protein [Mass/Vol] 7.9 g/dL Normal 6.4-8.2 [facility] Comment on above: Performed By: #### L IPID, TSH, CMP, T7 #### [facility] [address] [address] [address] Merly Larios Sodium [Moles/Vol] 142 mmol/L Normal 136-145 [facility] Comment on above: Performed By: #### L IPID, TSH, CMP, T7 #### [facility] [address] [place] [address] Dr. Merly Larios Urea nitrogen [Mass/Vol] 14.0 mg/dL Normal 7.0-18.0 [facility] Comment on above: Performed By: #### L IPID, TSH, CMP, T7 #### [facility] [address] [place] [address] Dr. Merly Larios Urea nitrogen/Creatinine [Mass ratio] 18.7 mg/mg Normal [facility] Comment on above: Performed By: #### L IPID, TSH, CMP, T7 #### [facility] [address] [address] [address] Merly Larios TSHon 10-19-2022 TSH 0.287 uIU/mL Critically low 0.358-3.740 [facility] Comment on above: Performed By: #### L IPID, TSH, CMP, T7 #### [facility] [address] [address] [address] Merly Larios XR DEXA BONE DENSITYon [...] authenticated by: JAN REYES Date: 2022-07-12 09:33 [facility] PAP ACOG PANEL 2: 30 to 65on 02-01-2022 . . Normal [facility] Comment on above: Result Comment: Perf ormed at: WB Performed By: #### [id number] #### [facility] [address] [place] [address] Dr. Merly Larios Age Gdln ACOG Testing 30-65 [facility] Comment on above: Performed By: #### [id number] #### [facility] [address] [address] [address] Merly Larios DIAGNOSIS: Comment [facility] Comment on above: Result Comment: NEGA TIVE FOR INTRAEPITHELIAL LESION OR MALIGNANCY. Performed at: WB Performed By: #### [id number] #### [facility] [address] [place] [address] Dr. Merly Larios HPV Aptima Negative Normal Negative [facility] Comment on above: Result Comment: This nucleic acid amplification test detects fourteen high-risk HPV types (16,18,31,33,35,39,45,51,52,56,58,59,66,68) without differentiation. Performed at: =G Performed By: #### [id number] #### [facility] [address] [place] [address] Dr. Merly Larios Methodology: CTIM Normal [facility] Comment on above: Result Comment: The [employer] Sales Manager was unable to read this specimen. Therefore a manual review was performed. Performed at: WB Performed By: #### [id number] #### [facility] [address] [place] [address] Dr. Merly Larios Note: Comment Normal [facility] Comment on above: Result Comment: The Pap smear is a screening test designed to aid in the detection of premalignant and malignant conditions of the uterine cervix. It is not a diagnostic procedure and should not be used as the sole means of detecting cervical cancer. Both false-positive and false-negative reports do occur. . Performed at: WB Performed By: #### [id number] #### [facility] [address] [place] [address] Dr. Merly Larios Performed by: Comment Normal [facility] Comment on above: Result Comment: Shaq Carvalho, Medical Surgery Nurse (ASCP) Performed at: WB Performed By: #### [id number] #### [facility] [address] [place] [address] Dr. Merly Larios Specimen adequacy: Comment Normal [facility] Comment on above: Result Comment: Sati sfactory for evaluation. Endocervical and/or squamous metaplastic cells (endocervical component) are present. Performed at: WB Performed By: #### [id number] #### [facility] [address] [place] [address] Dr. Merly Larios MG MAMM SCREEN 3D DAVINA CADon 11-16-2021 MG MAMM SCREEN 3D DAVINA CAD Patient: EUGENE DONOVAN Exam Date: 11/16/2021 : 1970 Gender:F Ordering : DR ANGEL MAXWELL . Admission #: [id number] Family : Order #: [id number] CLICK HERE TO VIEW EXAM RADIOLOGY REPORT [...] pancreatic cancer at age 72. LOCATION: [facility] BREAST COMPOSITION: Scattered areas fibroglandular density. FINDINGS: [...] MD on 11/16/2021 at 09:14 Normal [facility] INSULINon 10-26-2021 Insulin 13.6 uIU/mL Normal 2.6-24.9 [facility] Comment on above: Performed By: #### L IPID, TSH, CMP, T7 #### [facility] [address] [address] [address] Merly Larios CBC AUTO DIFFon 10-25-2021 BASO # 0.1 103/ul Normal 0.0-0.1 [facility] Comment on above: Performed By: #### L IPID, TSH, CMP, T7 #### [facility] [address] [address] [address] Merly Larios Basophils/100 WBC (Bld) 1.1 % Normal 0.2-2.0 [facility] Comment on above: Performed By: #### L IPID, TSH, CMP, T7 #### [facility] [address] [place] [address] Dr. Merly Larios EO # 0.2 103/ul Normal 0.0-0.7 [facility] Comment on above: Performed By: #### L IPID, TSH, CMP, T7 #### [facility] [address] [place] [address] Dr. Merly Larios Eosinophils/100 WBC (Bld) 3.0 % Normal 0.9-7.0 [facility] Comment on above: Performed By: #### L IPID, TSH, CMP, T7 #### [facility] [address] [place] [address] Dr. Merly Larios Erythrocyte distribution width (RBC) [Ratio] 12.7 % Normal 11.0-15.0 [facility] Comment on above: Performed By: #### L IPID, TSH, CMP, T7 #### [facility] [address] [place] [address] Dr. Merly Larios Hematocrit (Bld) [Volume fraction] 43.6 % Normal 36.0-48.0 [facility] Comment on above: Performed By: #### L IPID, TSH, CMP, T7 #### [facility] [address] [place] [address] Dr. Merly Larios Hemoglobin (Bld) [Mass/Vol] 14.2 g/dL Normal 12.0-16.0 [facility] Comment on above: Performed By: #### L IPID, TSH, CMP, T7 #### [facility] [address] [place] [address] Dr. Merly Larios IG # 0.01 10e3/ul Normal 0.00-0.03 [facility] Comment on above: Performed By: #### L IPID, TSH, CMP, T7 #### [facility] [address] [place] [address] Dr. Merly Larios IG % 0.2 % Normal 0.0-0.5 [facility] Comment on above: Performed By: #### L IPID, TSH, CMP, T7 #### [facility] [address] [place] [address] Dr. Merly Larios LYMPH # 1.5 103/ul Normal 1.2-3.8 [facility] Comment on above: Performed By: #### L IPID, TSH, CMP, T7 #### [facility] [address] [address] [address] Merly Larios Lymphocytes/100 WBC (Bld) 27.5 % Normal 20.5-60.0 [facility] Comment on above: Performed By: #### L IPID, TSH, CMP, T7 #### [facility] [address] [place] [address] Dr. Merly Larios MANUAL DIFF REQ NO Normal [facility] Comment on above: Performed By: #### L IPID, TSH, CMP, T7 #### [facility] [address] [place] [address] Dr. Merly Larios MCH (RBC) [Entitic mass] 28.3 pg Normal 26.7-34.0 [facility] Comment on above: Performed By: #### L IPID, TSH, CMP, T7 #### [facility] [address] [place] [address] Dr. Merly Larios MCHC (RBC) [Mass/Vol] 32.6 g/dL Normal 29.9-35.2 [facility] Comment on above: Performed By: #### L IPID, TSH, CMP, T7 #### [facility] [address] [place] [address] Dr. Merly Larios MCV (RBC) [Entitic vol] 87.0 fL Normal 81.0-99.0 [facility] Comment on above: Performed By: #### L IPID, TSH, CMP, T7 #### [facility] [address] [place] [address] Dr. Merly Larios MONO # 0.5 103/ul Normal 0.3-0.8 [facility] Comment on above: Performed By: #### L IPID, TSH, CMP, T7 #### [facility] [address] [place] [address] Dr. Merly Larios Monocytes/100 WBC (Bld) 9.1 % Normal 1.7-12.0 [facility] Comment on above: Performed By: #### L IPID, TSH, CMP, T7 #### [facility] [address] [address] [address] Merly Larios NEUT # 3.1 103/ul Normal 1.4-6.5 [facility] Comment on above: Performed By: #### L IPID, TSH, CMP, T7 #### [facility] [address] [address] [address] Merly Larios Neutrophils/100 WBC (Bld) 59.1 % Normal 43.0-75.0 [facility] Comment on above: Performed By: #### L IPID, TSH, CMP, T7 #### [facility] [address] [place] [address] Dr. Merly Larios Platelet mean volume (Bld) [Entitic vol] 9.5 fL Normal 9.5-13.5 [facility] Comment on above: Performed By: #### L IPID, TSH, CMP, T7 #### [facility] [address] [place] [address] Dr. Merly Larios PLT 208 103/ul Normal 150-450 [facility] Comment on above: Performed By: #### L IPID, TSH, CMP, T7 #### [facility] [address] [place] [address] Dr. Merly Larios RBC 5.01 106/ul Normal 4.20-5.40 [facility] Comment on above: Performed By: #### L IPID, TSH, CMP, T7 #### [facility] [address] [place] [address] Dr. Merly Larios WBC 5.3 103/ul Normal 4.0-11.0 [facility] Comment on above: Performed By: #### L IPID, TSH, CMP, T7 #### [facility] [address] [place] [address] Dr. Merly Larios FREE THYROXINE INDEX T7on FTI 3.65 Normal [facility] Comment on above: Performed By: #### L IPID, TSH, CMP, T7 #### [facility] Laboratory [address] [address] [address] Merly Larios T3U 32.0 % Normal 23.5-40.5 [facility] Comment on above: Performed By: #### L IPID, TSH, CMP, T7 #### [facility] [address] [address] [address] Merly Larios T4 [Mass/Vol] 11.40 ug/dL Critically high 5.53-11.00 [facility] Comment on above: Performed By: #### L IPID, TSH, CMP, T7 #### [facility] [address] [address] [address] Merly Larios GLYCOHEMOGLOBIN A1Con 2021 ADA RECOMMENDATION ADA THERAPEUTIC TARGET 6.0 - 7.0 ACTION SUGGESTED > 7.0 Normal [facility] Comment on above: Performed By: #### A 1C #### [facility] [address] [address] [address] Merly Larios Glucose [Mass/Vol] 105 mg/dL Normal [facility] Comment on above: Performed By: #### A 1C #### [facility] [address] [address] [address] Merly Larios HbA1c (Bld) [Mass fraction] 5.3 % Normal <=6.0 [facility] Comment on above: Performed By: #### A 1C #### [facility] [address] [address] [address] Merly Larios IRONon 10-25-2021 Iron [Mass/Vol] 99.0 ug/dL Normal 37.0-170.0 [facility] Comment on above: Performed By: #### L IPID, TSH, CMP, T7 #### [facility] [address] [address] [address] Merly Larios LIPID PROFILEon 10-25-2021 CHOL-HDL RATIO NORM SEE BELOW Normal [facility] Comment on above: Result Comment: 3.3 - 4.4 LOW RISK 4.4 - 7.1 AVERAGE RISK 7.1 - 11.0 MODERATE RISK >11.0 HIGH RISK Performed By: #### L IPID, TSH, CMP, T7 #### [facility] [address] [address] [address] Merly Larios Cholesterol [Mass/Vol] 174 mg/dL Normal <=200 [facility] Comment on above: Performed By: #### L IPID, TSH, CMP, T7 #### [facility] [address] [address] [address] Merly Larios Cholesterol in HDL [Mass/Vol] 50 mg/dL Normal [facility] Comment on above: Performed By: #### L IPID, TSH, CMP, T7 #### [facility] [address] [address] [address] Merly Larios Cholesterol in LDL [Mass/Vol] 105.2 mg/dL Normal [facility] Comment on above: Performed By: #### L IPID, TSH, CMP, T7 #### [facility] [address] [address] [address] Merly Larios Cholesterol.total/Cho lesterol in HDL [Mass ratio] 3.5 {ratio} Normal [facility] Comment on above: Performed By: #### L IPID, TSH, CMP, T7 #### [facility] [address] [address] [address] Merly Larios HDL NORMAL > or = 60 mg/dl - LO W CARDIOVASCULAR RISK <40 mg/dl - HIGH CARDIOVASCULAR RISK Normal [facility] Comment on above: Performed By: #### L IPID, TSH, CMP, T7 #### [facility] [address] [address] [address] Merly Larios LDL CALC NORMAL SEE BELOW Normal [facility] Comment on above: Result Comment: <100 mg/dl OPTIMAL 100 - 129 mg/dl NEAR OR ABOVE OPTIMAL 130 - 159 mg/dl BORDERLINE HIGH 160 - 189 mg/dl HIGH >190 mg/dl VERY HIGH Performed By: #### L IPID, TSH, CMP, T7 #### [facility] [address] [address] [address] Merly Larios Triglyceride [Mass/Vol] 94 mg/dL Normal <=150 [facility] Comment on above: Performed By: #### L IPID, TSH, CMP, T7 #### [facility] [address] [address] [address] Merly Larios VLDL CALC 18.8 mg/dL Normal [facility] Comment on above: Performed By: #### L IPID, TSH, CMP, T7 #### [facility] [address] [address] [address] Merly Larios OCC BLD IMMUNO SCREENon 10-08 OCCULT BLOOD Negative Normal NEGATIVE [facility] Comment on above: Performed By: #### O BSCRN #### [facility] [address] [address] [address] Merly Larios PROF 14(COMP METB)on 022 Albumin [Mass/Vol] 3.8 g/dL Normal 3.5-5.0 [facility] Comment on above: Performed By: #### L IPID, TSH, CMP, T7 #### [facility] [address] [place] [address] Dr. Merly Larios Albumin/Globulin [Mass ratio] 1.0 {ratio} Normal [facility] Comment on above: Performed By: #### L IPID, TSH, CMP, T7 #### [facility] [address] [address] [address] Merly Larios ALP [Catalytic activity/Vol] 98 U/L Normal 38-126 [facility] Comment on above: Performed By: #### L IPID, TSH, CMP, T7 #### [facility] [address] [address] [address] Merly Larios ALT [Catalytic activity/Vol] 30 U/L Normal 9-52 [facility] Comment on above: Performed By: #### L IPID, TSH, CMP, T7 #### [facility] [address] [address] [address] Merly Larios Anion gap [Moles/Vol] 14.1 mmol/L Normal [facility] Comment on above: Performed By: #### L IPID, TSH, CMP, T7 #### [facility] [address] [address] [address] Merly Larios AST [Catalytic activity/Vol] 16 U/L Normal 14-36 [facility] Comment on above: Performed By: #### L IPID, TSH, CMP, T7 #### [facility] [address] [address] [address] Merly Larios Bilirubin [Mass/Vol] 0.4 mg/dL Normal 0.2-1.3 [facility] Comment on above: Performed By: #### L IPID, TSH, CMP, T7 #### [facility] [address] [address] [address] Merly Larios Calcium [Mass/Vol] 9.8 mg/dL Normal 8.4-10.2 [facility] Comment on above: Performed By: #### L IPID, TSH, CMP, T7 #### [facility] [address] [place] [address] Dr. Merly Larios Chloride [Moles/Vol] 106 mmol/L Normal 98-107 [facility] Comment on above: Performed By: #### L IPID, TSH, CMP, T7 #### [facility] [address] [place] [address] Dr. Merly Larios CO2 [Moles/Vol] 26.1 mmol/L Normal 22.0-30.0 The [facility] Comment on above: Performed By: #### L IPID, TSH, CMP, T7 #### [facility] [address] [place] [address] Dr. Merly Larios Creatinine [Mass/Vol] 0.80 mg/dL Normal 0.52-1.04 [facility] Comment on above: Performed By: #### L IPID, TSH, CMP, T7 #### [facility] [address] [place] [address] Dr. Merly Larios EGFR-AF URUGUAYAN >60 Normal >=60 The [facility] Comment on above: Performed By: #### L IPID, TSH, CMP, T7 #### [facility] [address] [place] [address] Dr. Merly Larios EGFR-NON AF URUGUAYAN >60 Normal >=60 [facility] Comment on above: Performed By: #### L IPID, TSH, CMP, T7 #### [facility] [address] [place] [address] Dr. Merly Larios Globulin (S) [Mass/Vol] 3.8 g/dL Normal [facility] Comment on above: Performed By: #### L IPID, TSH, CMP, T7 #### [facility] [address] [place] [address] Dr. Merly Larios Glucose [Mass/Vol] 109 mg/dL Critically high 74-106 [facility] Comment on above: Performed By: #### L IPID, TSH, CMP, T7 #### [facility] [address] [place] [address] Dr. Merly Larios Potassium [Moles/Vol] 4.2 mmol/L Normal 3.4-5.0 [facility] Comment on above: Performed By: #### L IPID, TSH, CMP, T7 #### [facility] [address] [place] [address] Dr. Merly Larios Protein [Mass/Vol] 7.6 g/dL Normal 6.1-8.2 [facility] Comment on above: Performed By: #### L IPID, TSH, CMP, T7 #### [facility] [address] [place] [address] Dr. Merly Larios Sodium [Moles/Vol] 142 mmol/L Normal 137-145 [facility] Comment on above: Performed By: #### L IPID, TSH, CMP, T7 #### [facility] [address] [place] [address] Dr. Merly Larios Urea nitrogen [Mass/Vol] 13.0 mg/dL Normal 7.0-17.0 [facility] Comment on above: Performed By: #### L IPID, TSH, CMP, T7 #### [facility] [address] [place] [address] Dr. Merly Larios Urea nitrogen/Creatinine [Mass ratio] 16.2 mg/mg Normal [facility] Comment on above: Performed By: #### L IPID, TSH, CMP, T7 #### [facility] [address] [place] [address] Dr. Merly Larios TSHon 10-25-2021 TSH 0.315 uIU/mL Critically low 0.470-4.680 [facility] Comment on above: Performed By: #### L IPID, TSH, CMP, T7 #### [facility] [address] [place], [place] [address] Dr. Merly Larios TSH RANGE SEE BELOW Normal [facility] Comment on above: Result Comment: <0.3 4 UIU/ml HYPERTHYROID 0.34-5.60 UIU/ml EUTHYROID >5.60 UIU/ml HYPOTHYROID Performed By: #### L IPID, TSH, CMP, T7 #### [facility] [address] [place], [place] [address] Dr. Merly Larios Encounters Encounter Date Encounter Type Care Provider Facility Start: 10-19-2022 End: 10-20-[address] ANGEL MAXWELL Facility:[facility] Start: 07-12-2022 End: 07-13-[address] ANGEL MAXWELL Facility:[facility] Start: 01-26-2022 End: 01-26-[address] ANGEL MAXWELL Facility:[facility] Start: 11-16-2021 End: 11-17-[address] ANGEL MAXWELL Facility:[facility] Start: 10-27-2021 Encounter for genera l adult medical examination without abnormal findings DR ANGEL MAXWELL [facility] Start: 10-25-2021 End: 10-26-[address] ANGEL MAXWELL Facility:[facility] Start: 10-25-2021 End: 10-26-2021 Encounter for general adult medical examination without abnormal findings DR ANGEL MAXWELL Facility:[facility] Start: 04-08-2018 End: 04-09-2018 Ambulatory DEFAULT PHYSICIAN Facility:[facility] Payers Date Payer Category Payer Unknown [id number] [id number] [id number] 1970 Unknown [id number] 2.16.84 [id number] 1971 Unknown [id number] 2.16.84 [id number] 1971 Unknown [id number] 2.16.84 [id number] 1971 Unknown [id number] 2.16.84 [id number] 1959 Private Health Insurance [id number] 1958 Unknown [id number] Unknown Summary Purpose Family History No Family History Records FoundNo Family History Records Found Advance Directives No Advanced Directives Records FoundNo Advanced Directives Records Found Additional Source Comments INFORMATION SOURCE (unrecogn ized section and content) DATE CREATED AUTHOR 04/09/2018 [facility] DATE CREATED AUTHOR AUTHOR'S ORGANIZ ATION 10/20/2022 [facility] FOR RECORDS PERTAINING TO PATIENTS WHO [...] BE BASED ON THE PRIMARY CLINICAL RECORDS. [employer] [facility]. provides no warranty or guarantee of the accuracy or completeness of information in this document.
[2023-11-27 09:28] LABS: Free T3 2.74 pg/mL (2.18-3.98); Thyroid Stimulating Hormone 0.821 uIU/mL (0.358-3.740)
== END 2023-11-27 07:48 | disposition home or self-care (01) ==
LOC: LAB 07:50
PROVIDERS: PCP Family Medicine; Visit Provider Family Medicine
DX: E03.9 Hypothyroidism, unspecified (principal)
CPT/HCPCS: 36415; 84436; 84443; 84481

== ENCOUNTER 2024-10-29 13:51 | Outpatient (OUT) | payer BC, SELFPAY ==
--- OUTSIDE RECORDS SUMMARY | 2024-10-29 14:12 | XMS_ITS | CCD ---
Author Organization [facility] Care Team Providers [employer] Name Role Phone PHYSICIAN, DEFAULT Unavailable Unavailable [...] INSULINon 10-20-2022 Insulin 10.1 uIU/mL Normal 2.6-24.9 [facility] Comment on above: Performed By: #### L IPID, TSH, CMP, T7 #### [facility] [address] [address] [address] Merly Larios CBC AUTO DIFFon 10-19-2022 BASO # 0.1 103/ul Normal 0.0-0.1 [facility] Comment on above: Performed By: #### C BC #### [facility] [address] [place] [address] Dr. Merly Larios Basophils/100 WBC (Bld) 1.0 % Normal 0.2-2.0 [facility] Comment on above: Performed By: #### C BC #### [facility] [address] [place] [address] Dr. Merly Larios EO # 0.2 103/ul Normal 0.0-0.7 [facility] Comment on above: Performed By: #### C BC #### [facility] [address] [place] [address] Dr. Merly Larios Eosinophils/100 WBC (Bld) 2.6 % Normal 0.9-7.0 [facility] Comment on above: Performed By: #### C BC #### [facility] [address] [place] [address] Dr. Merly Larios Erythrocyte distribution width (RBC) [Ratio] 12.8 % Normal 11.0-15.0 [facility] Comment on above: Performed By: #### C BC #### [facility] [address] [place] [address] Dr. Merly Larios Hematocrit (Bld) [Volume fraction] 47.7 % Normal 36.0-48.0 [facility] Comment on above: Performed By: #### C BC #### [facility] [address] [place] [address] Dr. Merly Larios Hemoglobin (Bld) [Mass/Vol] 15.0 g/dL Normal 12.0-16.0 [facility] Comment on above: Performed By: #### C BC #### [facility] [address] [place] [address] Dr. Merly Larios IG # 0.02 10e3/ul Normal 0.00-0.03 [facility] Comment on above: Performed By: #### C BC #### [facility] [address] [place] [address] Dr. Merly Larios IG % 0.3 % Normal 0.0-0.5 [facility] Comment on above: Performed By: #### C BC #### [facility] [address] [place] [address] Dr. Merly Larios LYMPH # 1.5 103/ul Normal 1.2-3.8 [facility] Comment on above: Performed By: #### C BC #### [facility] [address] [place] [address] Dr. Merly Larios Lymphocytes/100 WBC (Bld) 26.0 % Normal 20.5-60.0 [facility] Comment on above: Performed By: #### C BC #### [facility] [address] [place] [address] Dr. Merly Larios MANUAL DIFF REQ NO Normal [facility] Comment on above: Performed By: #### C BC #### [facility] [address] [place] [address] Dr. Merly Larios MCH (RBC) [Entitic mass] 28.7 pg Normal 26.7-34.0 [facility] Comment on above: Performed By: #### C BC #### [facility] [address] [place] [address] Dr. Merly Larios MCHC (RBC) [Mass/Vol] 31.4 g/dL Normal 29.9-35.2 [facility] Comment on above: Performed By: #### C BC #### [facility] [address] [place] [address] Dr. Merly Larios MCV (RBC) [Entitic vol] 91.2 fL Normal 81.0-99.0 [facility] Comment on above: Performed By: #### C BC #### [facility] [address] [place] [address] Dr. Merly Larios MONO # 0.6 103/ul Normal 0.3-0.8 [facility] Comment on above: Performed By: #### C BC #### [facility] [address] [place] [address] Dr. Merly Larios Monocytes/100 WBC (Bld) 9.8 % Normal 1.7-12.0 [facility] Comment on above: Performed By: #### C BC #### [facility] [address] [place] [address] Dr. Merly Larios NEUT # 3.5 103/ul Normal 1.4-6.5 [facility] Comment on above: Performed By: #### C BC #### [facility] [address] [place] [address] Dr. Merly Larios Neutrophils/100 WBC (Bld) 60.3 % Normal 43.0-75.0 [facility] Comment on above: Performed By: #### C BC #### [facility] [address] [place] [address] Dr. Merly Larios Platelet mean volume (Bld) [Entitic vol] 9.8 fL Normal 9.5-13.5 [facility] Comment on above: Performed By: #### C BC #### [facility] [address] [place] [address] Dr. Merly Larios PLT 236 103/ul Normal 150-450 [facility] Comment on above: Performed By: #### C BC #### [facility] [address] [place] [address] Dr. Merly Larios RBC 5.23 106/ul Normal 4.20-5.40 [facility] Comment on above: Performed By: #### C BC #### [facility] [address] [place] [address] Dr. Merly Larios WBC 5.7 103/ul Normal 4.0-11.0 [facility] Comment on above: Performed By: #### C BC #### [facility] [address] [place] [address] Dr. Merly Larios FREE THYROXINE INDEX T7on FTI 3.89 Normal 1.30-4.50 [facility] Comment on above: Performed By: #### L IPID, TSH, CMP, T7 #### [facility] [address] [address] [address] Merly Larios T3U 35.0 % Normal 30.0-39.0 [facility] Comment on above: Performed By: #### L IPID, TSH, CMP, T7 #### [facility] [address] [address] [address] Merly Larios T4 [Mass/Vol] 11.10 ug/dL Normal 4.80-13.90 [facility] Comment on above: Performed By: #### L IPID, TSH, CMP, T7 #### [facility] [address] [address] [address] Merly Larios GLYCOHEMOGLOBIN A1Con 2022 ADA RECOMMENDATION SEE BELOW Normal [facility] Comment on above: Result Comment: ADA RECOMMENDED LIMIT 4.0 - 6.0 ADA THERAPEUTIC TARGET < 7.0 ACTION SUGGESTED > 7.0 Performed By: #### A 1C #### [facility] [address] [place] [address] Dr. Merly Larios Glucose [Mass/Vol] 103 mg/dL Normal [facility] Comment on above: Performed By: #### A 1C #### [facility] [address] [place] [address] Dr. Merly Larios HbA1c (Bld) [Mass fraction] 5.2 % Normal 4.5-6.2 [facility] Comment on above: Performed By: #### A 1C #### [facility] [address] [address] [address] Merly Larios IRONon 10-19-2022 Iron [Mass/Vol] 123.0 ug/dL Normal 50.0-170.[address] [facility] Comment on above: Performed By: #### L IPID, TSH, CMP, T7 #### [facility] [address] [place] [address] Dr. Merly Larios LIPID PROFILEon 10-19-2022 CHOL-HDL RATIO NORM SEE BELOW Normal [facility] Comment on above: Result Comment: 3.3 - 4.4 LOW RISK 4.4 - 7.1 AVERAGE RISK 7.1 - 11.0 MODERATE RISK >11.0 HIGH RISK Performed By: #### L IPID, TSH, CMP, T7 #### [facility] [address] [address] [address] Merly Larios Cholesterol [Mass/Vol] 177 mg/dL Normal <=200 [facility] Comment on above: Performed By: #### L IPID, TSH, CMP, T7 #### [facility] [address] [address] [address] Merly Larios Cholesterol in HDL [Mass/Vol] 53 mg/dL Normal 40-60 [facility] Comment on above: Performed By: #### L IPID, TSH, CMP, T7 #### [facility] [address] [address] [address] Merly Larios Cholesterol in LDL [Mass/Vol] 105.4 mg/dL Normal [facility] Comment on above: Performed By: #### L IPID, TSH, CMP, T7 #### [facility] [address] [address] [address] Merly Larios Cholesterol.total/Cho lesterol in HDL [Mass ratio] 3.3 {ratio} Normal [facility] Comment on above: Performed By: #### L IPID, TSH, CMP, T7 #### [facility] [address] [address] [address] Merly Larios HDL NORMAL > or = 60 mg/dl - LO W CARDIOVASCULAR RISK <40 mg/dl - HIGH CARDIOVASCULAR RISK Normal [facility] Comment on above: Performed By: #### L IPID, TSH, CMP, T7 #### [facility] [address] [address] [address] Merly Larios LDL CALC NORMAL SEE BELOW Normal [facility] Comment on above: Result Comment: <100 mg/dl OPTIMAL 100 - 129 mg/dl NEAR OR ABOVE OPTIMAL 130 - 159 mg/dl BORDERLINE HIGH 160 - 189 mg/dl HIGH >190 mg/dl VERY HIGH Performed By: #### L IPID, TSH, CMP, T7 #### [facility] [address] [address] [address] Merly Larios Triglyceride [Mass/Vol] 93 mg/dL Normal <=150 [facility] Comment on above: Performed By: #### L IPID, TSH, CMP, T7 #### [facility] [address] [address] [address] Merly Larios VLDL CALC 18.6 mg/dL Normal [facility] Comment on above: Performed By: #### L IPID, TSH, CMP, T7 #### [facility] [address] [address] [address] Merly Larios OCC BLD IMMUNO SCREENon 10-08 OCCULT BLOOD Negative Normal NEGATIVE [facility] Comment on above: Performed By: #### O BSCRN #### [facility] [address] [address] [address] Merly Larios PROF 14(COMP METB)on 023 Albumin [Mass/Vol] 4.0 g/dL Normal 3.4-5.0 [facility] Comment on above: Performed By: #### L IPID, TSH, CMP, T7 #### [facility] [address] [address] [address] Merly Larios Albumin/Globulin [Mass ratio] 1.0 {ratio} Normal [facility] Comment on above: Performed By: #### L IPID, TSH, CMP, T7 #### [facility] [address] [address] [address] Merly Larios ALP [Catalytic activity/Vol] 104 U/L Normal 46-116 [facility] Comment on above: Performed By: #### L IPID, TSH, CMP, T7 #### [facility] [address] [address] [address] Merly Larios ALT [Catalytic activity/Vol] 24 U/L Normal 14-59 [facility] Comment on above: Performed By: #### L IPID, TSH, CMP, T7 #### [facility] [address] [address] [address] Merly Larios Anion gap [Moles/Vol] 12.8 mmol/L Normal [facility] Comment on above: Performed By: #### L IPID, TSH, CMP, T7 #### [facility] [address] [address] [address] Merly Larios AST [Catalytic activity/Vol] 17 U/L Normal 15-37 [facility] Comment on above: Performed By: #### L IPID, TSH, CMP, T7 #### [facility] [address] [address] [address] Merly Larios Bilirubin [Mass/Vol] 0.6 mg/dL Normal 0.2-1.0 [facility] Comment on above: Performed By: #### L IPID, TSH, CMP, T7 #### [facility] [address] [address] [address] Merly Larios Calcium [Mass/Vol] 9.4 mg/dL Normal 8.5-10.1 [facility] Comment on above: Performed By: #### L IPID, TSH, CMP, T7 #### [facility] [address] [address] [address] Merly Larios Chloride [Moles/Vol] 105 mmol/L Normal 98-107 [facility] Comment on above: Performed By: #### L IPID, TSH, CMP, T7 #### [facility] [address] [address] [address] Merly Larios CO2 [Moles/Vol] 28.3 mmol/L Normal 21.0-32.0 [facility] Comment on above: Performed By: #### L IPID, TSH, CMP, T7 #### [facility] [address] [address] [address] Merly Larios Creatinine [Mass/Vol] 0.75 mg/dL Normal 0.55-1.02 [facility] Comment on above: Performed By: #### L IPID, TSH, CMP, T7 #### [facility] [address] [address] [address] Merly Larios EGFR-AF ALBANIAN >60 Normal >=60 [facility] Comment on above: Performed By: #### L IPID, TSH, CMP, T7 #### [facility] [address] [address] [address] Merly Larios EGFR-NON AF ALBANIAN >60 Normal >=60 [facility] Comment on above: Performed By: #### L IPID, TSH, CMP, T7 #### [facility] [address] [address] [address] Merly Larios Globulin (S) [Mass/Vol] 3.9 g/dL Normal [facility] Comment on above: Performed By: #### L IPID, TSH, CMP, T7 #### [facility] [address] [address] [address] Merly Larios Glucose [Mass/Vol] 102 mg/dL Normal 74-106 [facility] Comment on above: Performed By: #### L IPID, TSH, CMP, T7 #### [facility] [address] [address] [address] Merly Larios Potassium [Moles/Vol] 4.1 mmol/L Normal 3.5-5.1 [facility] Comment on above: Performed By: #### L IPID, TSH, CMP, T7 #### [facility] [address] [address] [address] Merly Larios Protein [Mass/Vol] 7.9 g/dL Normal 6.4-8.2 [facility] Comment on above: Performed By: #### L IPID, TSH, CMP, T7 #### [facility] [address] [address] [address] Merly Larios Sodium [Moles/Vol] 142 mmol/L Normal 136-145 [facility] Comment on above: Performed By: #### L IPID, TSH, CMP, T7 #### [facility] [address] [address] [address] Merly Larios Urea nitrogen [Mass/Vol] 14.0 mg/dL Normal 7.0-18.0 [facility] Comment on above: Performed By: #### L IPID, TSH, CMP, T7 #### [facility] [address] [address] [address] Merly Larios Urea nitrogen/Creatinine [Mass ratio] 18.7 mg/mg Normal [facility] Comment on above: Performed By: #### L IPID, TSH, CMP, T7 #### [facility] [address] [address] [address] Merly Larios TSHon 10-19-2022 TSH 0.287 uIU/mL Critically low 0.358-3.740 [facility] Comment on above: Performed By: #### L IPID, TSH, CMP, T7 #### [facility] [address] [address] [address] Merly Larios XR DEXA BONE DENSITYon [...] authenticated by: JAN REYES Date: 2022-07-12 09:33 [facility] PAP ACOG PANEL 2: 30 to 65on 02-01-2022 . . Normal [facility] Comment on above: Result Comment: Perf ormed at: WB Performed By: #### [id number] #### [facility] [address] [place] [address] Dr. Merly Larios Age Gdln ACOG Testing 30-65 [facility] Comment on above: Performed By: #### [id number] #### [facility] [address] [place] [address] Dr. Merly Larios DIAGNOSIS: Comment [facility] Comment on above: Result Comment: NEGA TIVE FOR INTRAEPITHELIAL LESION OR MALIGNANCY. Performed at: WB Performed By: #### [id number] #### [facility] [address] [place] [address] Dr. Merly Larios HPV Aptima Negative Normal Negative [facility] Comment on above: Result Comment: This nucleic acid amplification test detects fourteen high-risk HPV types (16,18,31,33,35,39,45,51,52,56,58,59,66,68) without differentiation. Performed at: =G Performed By: #### [id number] #### [facility] [address] [place] [address] Dr. Merly Larios Methodology: CTIM Normal [facility] Comment on above: Result Comment: The [employer]) Director Advertising was unable to read this specimen. Therefore a manual review was performed. Performed at: WB Performed By: #### [id number] #### [facility] [address] [place] [address] Dr. Merly Larios Note: Comment Normal [facility] Comment on above: Result Comment: The Pap smear is a screening test designed to aid in the detection of premalignant and malignant conditions of the uterine cervix. It is not a diagnostic procedure and should not be used as the sole means of detecting cervical cancer. Both false-positive and false-negative reports do occur. . Performed at: WB Performed By: #### [id number] #### [facility] [address] [place] [address] Dr. Merly Larios Performed by: Comment Normal [facility] Comment on above: Result Comment: Shaq Carvalho, Meat Lugger (ASCP) Performed at: WB Performed By: #### [id number] #### [facility] [address] [place] [address] Dr. Merly Larios Specimen adequacy: Comment Normal [facility] Comment on above: Result Comment: Sati sfactory for evaluation. Endocervical and/or squamous metaplastic cells (endocervical component) are present. Performed at: WB Performed By: #### [id number] #### [facility] [address] [place] [address] Dr. Merly Larios MG MAMM SCREEN 3D DAVINA CADon 11-16-2021 MG MAMM SCREEN 3D DAVINA CAD Patient: EUGENE DONOVAN Exam Date: 11/16/2021 : 1970 Gender:F Ordering : DR ANGEL MAXWELL . Admission #: [id number] Family : Order #: [id number] CLICK HERE TO VIEW EXAM RADIOLOGY REPORT [...] pancreatic cancer at age 72. LOCATION: [facility] BREAST COMPOSITION: Scattered areas fibroglandular density. FINDINGS: [...] MD on 11/16/2021 at 09:14 Normal [facility] INSULINon 10-26-2021 Insulin 13.6 uIU/mL Normal 2.6-24.9 [facility] Comment on above: Performed By: #### L IPID, TSH, CMP, T7 #### [facility] [address] [place] [address] Dr. Merly Larios CBC AUTO DIFFon 10-25-2021 BASO # 0.1 103/ul Normal 0.0-0.1 [facility] Comment on above: Performed By: #### L IPID, TSH, CMP, T7 #### [facility] [address] [address] [address] Merly Larios Basophils/100 WBC (Bld) 1.1 % Normal 0.2-2.0 [facility] Comment on above: Performed By: #### L IPID, TSH, CMP, T7 #### [facility] [address] [place] [address] Dr. Merly Larios EO # 0.2 103/ul Normal 0.0-0.7 [facility] Comment on above: Performed By: #### L IPID, TSH, CMP, T7 #### [facility] [address] [place] [address] Dr. Merly Larios Eosinophils/100 WBC (Bld) 3.0 % Normal 0.9-7.0 [facility] Comment on above: Performed By: #### L IPID, TSH, CMP, T7 #### [facility] [address] [place] [address] Dr. Merly Larios Erythrocyte distribution width (RBC) [Ratio] 12.7 % Normal 11.0-15.0 [facility] Comment on above: Performed By: #### L IPID, TSH, CMP, T7 #### [facility] [address] [place] [address] Dr. Merly Larios Hematocrit (Bld) [Volume fraction] 43.6 % Normal 36.0-48.0 [facility] Comment on above: Performed By: #### L IPID, TSH, CMP, T7 #### [facility] [address] [place] [address] Dr. Merly Larios Hemoglobin (Bld) [Mass/Vol] 14.2 g/dL Normal 12.0-16.0 [facility] Comment on above: Performed By: #### L IPID, TSH, CMP, T7 #### [facility] [address] [place] [address] Dr. Merly Larios IG # 0.01 10e3/ul Normal 0.00-0.03 [facility] Comment on above: Performed By: #### L IPID, TSH, CMP, T7 #### [facility] [address] [place] [address] Dr. Merly Larios IG % 0.2 % Normal 0.0-0.5 [facility] Comment on above: Performed By: #### L IPID, TSH, CMP, T7 #### [facility] [address] [place] [address] Dr. Merly Larios LYMPH # 1.5 103/ul Normal 1.2-3.8 [facility] Comment on above: Performed By: #### L IPID, TSH, CMP, T7 #### [facility] [address] [place] [address] Dr. Merly Larios Lymphocytes/100 WBC (Bld) 27.5 % Normal 20.5-60.0 [facility] Comment on above: Performed By: #### L IPID, TSH, CMP, T7 #### [facility] [address] [place] [address] Dr. Merly Larios MANUAL DIFF REQ NO Normal [facility] Comment on above: Performed By: #### L IPID, TSH, CMP, T7 #### [facility] [address] [place] [address] Dr. Merly Larios MCH (RBC) [Entitic mass] 28.3 pg Normal 26.7-34.0 [facility] Comment on above: Performed By: #### L IPID, TSH, CMP, T7 #### [facility] [address] [place] [address] Dr. Merly Larios MCHC (RBC) [Mass/Vol] 32.6 g/dL Normal 29.9-35.2 [facility] Comment on above: Performed By: #### L IPID, TSH, CMP, T7 #### [facility] [address] [place] [address] Dr. Merly Larios MCV (RBC) [Entitic vol] 87.0 fL Normal 81.0-99.0 [facility] Comment on above: Performed By: #### L IPID, TSH, CMP, T7 #### [facility] [address] [place] [address] Dr. Merly Larios MONO # 0.5 103/ul Normal 0.3-0.8 [facility] Comment on above: Performed By: #### L IPID, TSH, CMP, T7 #### [facility] [address] [place] [address] Dr. Merly Larios Monocytes/100 WBC (Bld) 9.1 % Normal 1.7-12.0 [facility] Comment on above: Performed By: #### L IPID, TSH, CMP, T7 #### [facility] [address] [address] [address] Merly Larios NEUT # 3.1 103/ul Normal 1.4-6.5 [facility] Comment on above: Performed By: #### L IPID, TSH, CMP, T7 #### [facility] [address] [place] [address] Dr. Merly Larios Neutrophils/100 WBC (Bld) 59.1 % Normal 43.0-75.0 [facility] Comment on above: Performed By: #### L IPID, TSH, CMP, T7 #### [facility] [address] [place] [address] Dr. Merly Larios Platelet mean volume (Bld) [Entitic vol] 9.5 fL Normal 9.5-13.5 [facility] Comment on above: Performed By: #### L IPID, TSH, CMP, T7 #### [facility] [address] [place] [address] Dr. Merly Larios PLT 208 103/ul Normal 150-450 [facility] Comment on above: Performed By: #### L IPID, TSH, CMP, T7 #### [facility] [address] [place] [address] Dr. Merly Larios RBC 5.01 106/ul Normal 4.20-5.40 [facility] Comment on above: Performed By: #### L IPID, TSH, CMP, T7 #### [facility] [address] [place] [address] Dr. Merly Larios WBC 5.3 103/ul Normal 4.0-11.0 [facility] Comment on above: Performed By: #### L IPID, TSH, CMP, T7 #### [facility] [address] [place] [address] Dr. Merly Larios FREE THYROXINE INDEX T7on FTI 3.65 Normal [facility] Comment on above: Performed By: #### L IPID, TSH, CMP, T7 #### [facility] [address] [place] [address] Dr. Merly Larios T3U 32.0 % Normal 23.5-40.5 [facility] Comment on above: Performed By: #### L IPID, TSH, CMP, T7 #### [facility] [address] [address] [address] Merly Larios T4 [Mass/Vol] 11.40 ug/dL Critically high 5.53-11.00 [facility] Comment on above: Performed By: #### L IPID, TSH, CMP, T7 #### [facility] [address] [address] [address] Merly Larios GLYCOHEMOGLOBIN A1Con 2021 ADA RECOMMENDATION ADA THERAPEUTIC TARGET 6.0 - 7.0 ACTION SUGGESTED > 7.0 Normal [facility] Comment on above: Performed By: #### A 1C #### [facility] [address] [address] [address] Merly Larois Glucose [Mass/Vol] 105 mg/dL Normal [facility] Comment on above: Performed By: #### A 1C #### [facility] [address] [address] Dr. Merly Larios HbA1c (Bld) [Mass fraction] 5.3 % Normal <=6.0 [facility] Comment on above: Performed By: #### A 1C #### [facility] [address] [place] [address] Dr. Merly Larios IRONon 10-25-2021 Iron [Mass/Vol] 99.0 ug/dL Normal 37.0-170.0 [facility] Comment on above: Performed By: #### L IPID, TSH, CMP, T7 #### [facility] [address] [address] [address] Merly Larios LIPID PROFILEon 10-25-2021 CHOL-HDL RATIO NORM SEE BELOW Normal [facility] Comment on above: Result Comment: 3.3 - 4.4 LOW RISK 4.4 - 7.1 AVERAGE RISK 7.1 - 11.0 MODERATE RISK >11.0 HIGH RISK Performed By: #### L IPID, TSH, CMP, T7 #### [facility] [address] [place] [address] Dr. Merly Larios Cholesterol [Mass/Vol] 174 mg/dL Normal <=200 [facility] Comment on above: Performed By: #### L IPID, TSH, CMP, T7 #### [facility] [address] [address] [address] Merly Larios Cholesterol in HDL [Mass/Vol] 50 mg/dL Normal [facility] Comment on above: Performed By: #### L IPID, TSH, CMP, T7 #### [facility] [address] [address] [address] Merly Larios Cholesterol in LDL [Mass/Vol] 105.2 mg/dL Normal [facility] Comment on above: Performed By: #### L IPID, TSH, CMP, T7 #### [facility] [address] [address] [address] Merly Larios Cholesterol.total/Cho lesterol in HDL [Mass ratio] 3.5 {ratio} Normal [facility] Comment on above: Performed By: #### L IPID, TSH, CMP, T7 #### [facility] [address] [address] [address] Merly Larios HDL NORMAL > or = 60 mg/dl - LO W CARDIOVASCULAR RISK <40 mg/dl - HIGH CARDIOVASCULAR RISK Normal [facility] Comment on above: Performed By: #### L IPID, TSH, CMP, T7 #### [facility] [address] [address] [address] Merly Larios LDL CALC NORMAL SEE BELOW Normal [facility] Comment on above: Result Comment: <100 mg/dl OPTIMAL 100 - 129 mg/dl NEAR OR ABOVE OPTIMAL 130 - 159 mg/dl BORDERLINE HIGH 160 - 189 mg/dl HIGH >190 mg/dl VERY HIGH Performed By: #### L IPID, TSH, CMP, T7 #### [facility] [address] [address] [address] Merly Larios Triglyceride [Mass/Vol] 94 mg/dL Normal <=150 [facility] Comment on above: Performed By: #### L IPID, TSH, CMP, T7 #### [facility] [address] [address] [address] Merly Larios VLDL CALC 18.8 mg/dL Normal [facility] Comment on above: Performed By: #### L IPID, TSH, CMP, T7 #### [facility] [address] [address] [address] Merly Larios OCC BLD IMMUNO SCREENon 10-08 OCCULT BLOOD Negative Normal NEGATIVE [facility] Comment on above: Performed By: #### O BSCRN #### [facility] [address] [address] [address] Merly Larios PROF 14(COMP METB)on 022 Albumin [Mass/Vol] 3.8 g/dL Normal 3.5-5.0 [facility] Comment on above: Performed By: #### L IPID, TSH, CMP, T7 #### [facility] [address] [place] [address] Dr. Merly Larios Albumin/Globulin [Mass ratio] 1.0 {ratio} Normal [facility] Comment on above: Performed By: #### L IPID, TSH, CMP, T7 #### [facility] [address] [address] [address] Merly Larios ALP [Catalytic activity/Vol] 98 U/L Normal 38-126 [facility] Comment on above: Performed By: #### L IPID, TSH, CMP, T7 #### [facility] [address] [place] [address] Dr. Merly Larios ALT [Catalytic activity/Vol] 30 U/L Normal 9-52 [facility] Comment on above: Performed By: #### L IPID, TSH, CMP, T7 #### [facility] [address] [address] [address] Merly Larios Anion gap [Moles/Vol] 14.1 mmol/L Normal [facility] Comment on above: Performed By: #### L IPID, TSH, CMP, T7 #### [facility] [address] [address] [address] Merly Larios AST [Catalytic activity/Vol] 16 U/L Normal 14-36 [facility] Comment on above: Performed By: #### L IPID, TSH, CMP, T7 #### [facility] [address] [place] [address] Dr. Merly Larios Bilirubin [Mass/Vol] 0.4 mg/dL Normal 0.2-1.3 [facility] Comment on above: Performed By: #### L IPID, TSH, CMP, T7 #### [facility] [address] [place] [address] Dr. Merly Larios Calcium [Mass/Vol] 9.8 mg/dL Normal 8.4-10.2 [facility] Comment on above: Performed By: #### L IPID, TSH, CMP, T7 #### [facility] [address] [place] [address] Dr. Merly Larios Chloride [Moles/Vol] 106 mmol/L Normal 98-107 [facility] Comment on above: Performed By: #### L IPID, TSH, CMP, T7 #### [facility] [address] [place] [address] Dr. Merly Larios CO2 [Moles/Vol] 26.1 mmol/L Normal 22.0-30.0 [facility] Comment on above: Performed By: #### L IPID, TSH, CMP, T7 #### [facility] [address] [place] [address] Dr. Merly Larios Creatinine [Mass/Vol] 0.80 mg/dL Normal 0.52-1.04 [facility] Comment on above: Performed By: #### L IPID, TSH, CMP, T7 #### [facility] [address] [place] [address] Dr. Merly Larios EGFR-AF ALBANIAN >60 Normal >=[address] [facility] Comment on above: Performed By: #### L IPID, TSH, CMP, T7 #### [facility] [address] [place] [address] Dr. Merly Larios EGFR-NON AF ALBANIAN >60 Normal >=60 [facility] Comment on above: Performed By: #### L IPID, TSH, CMP, T7 #### [facility] [address] [place] [address] Dr. Merly Larios Globulin (S) [Mass/Vol] 3.8 g/dL Normal [facility] Comment on above: Performed By: #### L IPID, TSH, CMP, T7 #### [facility] [address] [address] [address] Merly Larios Glucose [Mass/Vol] 109 mg/dL Critically high 74-106 [facility] Comment on above: Performed By: #### L IPID, TSH, CMP, T7 #### [facility] [address] [address] [address] Merly Larios Potassium [Moles/Vol] 4.2 mmol/L Normal 3.4-5.0 [facility] Comment on above: Performed By: #### L IPID, TSH, CMP, T7 #### [facility] [address] [address] [address] Merly Larios Protein [Mass/Vol] 7.6 g/dL Normal 6.1-8.2 [facility] Comment on above: Performed By: #### L IPID, TSH, CMP, T7 #### [facility] [address] [address] [address] Merly Larios Sodium [Moles/Vol] 142 mmol/L Normal 137-145 [facility] Comment on above: Performed By: #### L IPID, TSH, CMP, T7 #### [facility] [address] [address] [address] Merly Larios Urea nitrogen [Mass/Vol] 13.0 mg/dL Normal 7.0-17.0 [facility] Comment on above: Performed By: #### L IPID, TSH, CMP, T7 #### [facility] [address] [address] [address] Merly Larios Urea nitrogen/Creatinine [Mass ratio] 16.2 mg/mg Normal [facility] Comment on above: Performed By: #### L IPID, TSH, CMP, T7 #### [facility] [address] [address] [address] Merly Larios TSHon 10-25-2021 TSH 0.315 uIU/mL Critically low 0.470-4.680 [facility] Comment on above: Performed By: #### L IPID, TSH, CMP, T7 #### [facility] [address] [place], [place] [address] Dr. Merly Larios TSH RANGE SEE BELOW Normal [facility] Comment on above: Result Comment: <0.3 4 UIU/ml HYPERTHYROID 0.34-5.60 UIU/ml EUTHYROID >5.60 UIU/ml HYPOTHYROID Performed By: #### L IPID, TSH, CMP, T7 #### [facility] [address] [place], [place] [address] Dr. Merly Larios Encounters Encounter Date Encounter Type Care Provider Facility Start: 10-19-2022 End: 10-20-[address] ANGEL MAXWELL Facility:[facility] Start: 07-12-2022 End: 07-13-[address] ANGEL MAXWELL Facility:[facility] Start: 01-26-2022 End: 01-26-[address] ANGEL MAXWELL Facility:[facility] Start: 11-16-2021 End: 11-17-[address] ANGEL MAXWELL Facility:[facility] Start: 10-27-2021 Encounter for genera l adult medical examination without abnormal findings DR ANGEL MAXWELL [facility] Start: 10-25-2021 End: 10-26-[address] ANGEL MAXWELL Facility:[facility] Start: 10-25-2021 End: 10-26-2021 Encounter for general adult medical examination without abnormal findings DR ANGEL MAXWELL Facility:[facility] Start: 04-08-2018 End: 04-09-2018 Ambulatory DEFAULT PHYSICIAN Facility:[facility] Payers Date Payer Category Payer Unknown [id number] 2.16.84 [id number] 1970 Unknown [id number] 2.16.84 [id number] 1971 Unknown [id number] 2.16.84 [id number] 1971 Unknown [id number] 2.16.84 [id number] 1971 Unknown [id number] 2.16.84 [id number] 1959 Private Health Insurance [id number] 1958 Unknown [id number] Unknown Summary Purpose Family History No Family History Records FoundNo Family History Records Found Advance Directives No Advanced Directives Records FoundNo Advanced Directives Records Found Additional Source Comments INFORMATION SOURCE (unrecogn ized section and content) DATE CREATED AUTHOR 04/09/2018 [facility] DATE CREATED AUTHOR AUTHOR'S ORGANIZ ATION 10/20/2022 [facility] FOR RECORDS PERTAINING TO PATIENTS WHO [...] BE BASED ON THE PRIMARY CLINICAL RECORDS. [employer] [facility]. provides no warranty or guarantee of the accuracy or completeness of information in this document.
[2024-10-29 14:21] LABS: Basophils Percent Auto 0.8 % (0.2-2.0); Eosinophils Absolute Auto 0.1 10^3/uL (0.0-0.7); Hematocrit 44.5 % (36.0-48.0); Hemoglobin 15.1 g/dL (12.0-16.0); Immature Granulocytes Abs Auto 0.01 10^3/uL (0.00-0.03); Immature Granulocytes Pct Auto 0.2 % (0.0-0.5); Lymphocytes Absolute Auto 1.3 10^3/uL (1.2-3.8); Lymphocytes Percent Auto 24.8 % (20.5-60.0); Mean Corpuscular HGB Conc 33.9 g/dL (29.9-35.2); Mean Corpuscular Hemoglobin 28.7 pg (26.7-34.0); Mean Corpuscular Volume 84.6 fL (81.0-99.0); Mean Platelet Volume 9.9 fL (9.5-13.5); Monocytes Absolute Auto 0.5 10^3/uL (0.3-0.8); Monocytes Percent Auto 9.3 % (1.7-12.0); Neutrophils Absolute Auto 3.2 10^3/uL (1.4-6.5); Neutrophils Percent Auto 62.9 % (43.0-75.0); Platelet Count 220 10^3/uL (150-450); Red Blood Count 5.26 10^6/uL (4.20-5.40); Red Cell Distribution Width 12.6 % (11.0-15.0); White Blood Count 5.1 10^3/uL (4.0-11.0)
[2024-10-29 14:32] LABS: Estimated Average Glucose 103 mg/dL; Glycohemoglobin A1C 5.2 % (4.5-6.2)
[2024-10-29 15:08] LABS: Alanine Aminotransferase 36 U/L (14-59); Albumin Globulin Ratio 1.1; Alkaline Phosphatase 84 U/L (46-116); Anion Gap 13.1; Aspartate Amino Transferase 19 U/L (15-37); BUN Creatinine Ratio 10.6; Bilirubin Total 0.5 mg/dL (0.2-1.0); Calcium 9.4 mg/dL (8.5-10.1); Carbon Dioxide 29.1 mmol/L (21.0-32.0); Chloride 105 mmol/L (98-107); Chol HDL Ratio 2.6; Cholesterol 128 mg/dL (<=200); Estimated GFR (African America >60 (>=60 mL/min/1.73m^2); Estimated GFR (Non-African Ame >60 (>=60 mL/min/1.73m^2); Free T3 2.87 pg/mL (2.18-3.98); Globulin 3.6 g/dL; Glucose 96 mg/dL (74-106); HDL Cholesterol 50 mg/dL (40-60); LDL Cholesterol Calculated 68.6 mg/dL; Potassium 4.2 mmol/L (3.5-5.1); Sodium 143 mmol/L (136-145); Thyroid Stimulating Hormone 0.096 uIU/mL (0.358-3.740); Total Protein 7.6 g/dL (6.4-8.2); Triglycerides 47 mg/dL (<=150); VLDL CHOLESTEROL 9.4 mg/dL
== END 2024-10-29 13:52 | disposition home or self-care (01) ==
LOC: LAB 13:52
PROVIDERS: PCP Family Medicine; Visit Provider Family Medicine
DX: Z00.00 Encounter for general adult medical examination without abnormal findings (principal)
CPT/HCPCS: 36415; 80053; 80061; 82306; 83036; 84436; 84443; 84481; 85025

== ENCOUNTER 2024-10-30 16:39 | Outpatient (REF) | payer BC, SELFPAY ==
[2024-10-30 17:09] LABS: Internal Control Within Normal Limits; Occult Blood Negative
== END 2024-10-30 16:40 | disposition home or self-care (01) ==
LOC: LAB 16:39
PROVIDERS: PCP Family Medicine; Visit Provider Family Medicine
DX: Z00.00 Encounter for general adult medical examination without abnormal findings (principal)
CPT/HCPCS: G0328

== ENCOUNTER 2024-12-01 11:45 | Outpatient (OUT) | payer BC, SELFPAY ==
--- OUTSIDE RECORDS SUMMARY | 2024-12-01 12:08 | XMS_ITS | CCD ---
Author Organization [facility] Care Team Providers Care Rehab Liaison Name Role Phone PHYSICIAN, DEFAULT Unavailable Unavailable [...] INSULINon 10-20-2022 Insulin 10.1 uIU/mL Normal 2.6-24.9 [facility] Comment on above: Performed By: #### L IPID, TSH, CMP, T7 #### [facility] [address] [address] [address] Merly Larios CBC AUTO DIFFon 10-19-2022 BASO # 0.1 103/ul Normal 0.0-0.1 [facility] Comment on above: Performed By: #### C BC #### [facility] [address] [place] [address] Dr. Merly Larios Basophils/100 WBC (Bld) 1.0 % Normal 0.2-2.0 [facility] Comment on above: Performed By: #### C BC #### [facility] [address] [place] [address] Dr. Merly Larios EO # 0.2 103/ul Normal 0.0-0.7 [facility] Comment on above: Performed By: #### C BC #### [facility] [address] [place] [address] Dr. Merly Larios Eosinophils/100 WBC (Bld) 2.6 % Normal 0.9-7.0 [facility] Comment on above: Performed By: #### C BC #### [facility] [address] [place] [address] Dr. Merly Larios Erythrocyte distribution width (RBC) [Ratio] 12.8 % Normal 11.0-15.0 [facility] Comment on above: Performed By: #### C BC #### [facility] [address] [place] [address] Dr. Merly Larios Hematocrit (Bld) [Volume fraction] 47.7 % Normal 36.0-48.0 [facility] Comment on above: Performed By: #### C BC #### [facility] [address] [place] [address] Dr. Merly Larios Hemoglobin (Bld) [Mass/Vol] 15.0 g/dL Normal 12.0-16.0 [facility] Comment on above: Performed By: #### C BC #### [facility] [address] [place] [address] Dr. Merly Larios IG # 0.02 10e3/ul Normal 0.00-0.03 [facility] Comment on above: Performed By: #### C BC #### [facility] [address] [place] [address] Dr. Merly Larios IG % 0.3 % Normal 0.0-0.5 [facility] Comment on above: Performed By: #### C BC #### [facility] [address] [place] [address] Dr. Merly Larios LYMPH # 1.5 103/ul Normal 1.2-3.8 [facility] Comment on above: Performed By: #### C BC #### [facility] [address] [place] [address] Dr. Merly Larios Lymphocytes/100 WBC (Bld) 26.0 % Normal 20.5-60.0 [facility] Comment on above: Performed By: #### C BC #### [facility] [address] [place] [address] Dr. Merly Larios MANUAL DIFF REQ NO Normal [facility] Comment on above: Performed By: #### C BC #### [facility] [address] [place] [address] Dr. Merly Larios MCH (RBC) [Entitic mass] 28.7 pg Normal 26.7-34.0 [facility] Comment on above: Performed By: #### C BC #### [facility] [address] [place] [address] Dr. Merly Larios MCHC (RBC) [Mass/Vol] 31.4 g/dL Normal 29.9-35.2 [facility] Comment on above: Performed By: #### C BC #### [facility] [address] [place] [address] Dr. Merly Larios MCV (RBC) [Entitic vol] 91.2 fL Normal 81.0-99.0 [facility] Comment on above: Performed By: #### C BC #### [facility] [address] [place] [address] Dr. Merly Larios MONO # 0.6 103/ul Normal 0.3-0.8 [facility] Comment on above: Performed By: #### C BC #### [facility] [address] [place] [address] Dr. Merly Larios Monocytes/100 WBC (Bld) 9.8 % Normal 1.7-12.0 [facility] Comment on above: Performed By: #### C BC #### [facility] [address] [place] [address] Dr. Merly Larios NEUT # 3.5 103/ul Normal 1.4-6.5 [facility] Comment on above: Performed By: #### C BC #### [facility] [address] [place] [address] Dr. Merly Larios Neutrophils/100 WBC (Bld) 60.3 % Normal 43.0-75.0 [facility] Comment on above: Performed By: #### C BC #### [facility] [address] [place] [address] Dr. Merly Larios Platelet mean volume (Bld) [Entitic vol] 9.8 fL Normal 9.5-13.5 [facility] Comment on above: Performed By: #### C BC #### [facility] [address] [place] [address] Dr. Merly Larios PLT 236 103/ul Normal 150-450 [facility] Comment on above: Performed By: #### C BC #### [facility] [address] [place] [address] Dr. Merly Larios RBC 5.23 106/ul Normal 4.20-5.40 [facility] Comment on above: Performed By: #### C BC #### [facility] [address] [place] [address] Dr. Merly Larios WBC 5.7 103/ul Normal 4.0-11.0 [facility] Comment on above: Performed By: #### C BC #### [facility] [address] [place] [address] Dr. Merly Larios FREE THYROXINE INDEX T7on FTI 3.89 Normal 1.30-4.50 [facility] Comment on above: Performed By: #### L IPID, TSH, CMP, T7 #### [facility] [address] [address] [address] Merly Larios T3U 35.0 % Normal 30.0-39.0 [facility] Comment on above: Performed By: #### L IPID, TSH, CMP, T7 #### [facility] [address] [address] [address] Merly Larios T4 [Mass/Vol] 11.10 ug/dL Normal 4.80-13.90 [facility] Comment on above: Performed By: #### L IPID, TSH, CMP, T7 #### [facility] [address] [address] [address] Merly Larios GLYCOHEMOGLOBIN A1Con 2022 ADA RECOMMENDATION SEE BELOW Normal [facility] Comment on above: Result Comment: ADA RECOMMENDED LIMIT 4.0 - 6.0 ADA THERAPEUTIC TARGET < 7.0 ACTION SUGGESTED > 7.0 Performed By: #### A 1C #### [facility] [address] [place] [address] Dr. Merly Larios Glucose [Mass/Vol] 103 mg/dL Normal [facility] Comment on above: Performed By: #### A 1C #### [facility] [address] [place] [address] Dr. Merly Larios HbA1c (Bld) [Mass fraction] 5.2 % Normal 4.5-6.2 [facility] Comment on above: Performed By: #### A 1C #### [facility] [address] [address] [address] Merly Larios IRONon 10-19-2022 Iron [Mass/Vol] 123.0 ug/dL Normal 50.0-170.0 [facility] Comment on above: Performed By: #### L IPID, TSH, CMP, T7 #### [facility] [address] [place] [address] Dr. Merly Larios LIPID PROFILEon 10-19-2022 CHOL-HDL RATIO NORM SEE BELOW Normal [facility] Comment on above: Result Comment: 3.3 - 4.4 LOW RISK 4.4 - 7.1 AVERAGE RISK 7.1 - 11.0 MODERATE RISK >11.0 HIGH RISK Performed By: #### L IPID, TSH, CMP, T7 #### [facility] [address] [address] [address] Merly Larios Cholesterol [Mass/Vol] 177 mg/dL Normal <=200 [facility] Comment on above: Performed By: #### L IPID, TSH, CMP, T7 #### [facility] [address] [address] [address] Merly Larios Cholesterol in HDL [Mass/Vol] 53 mg/dL Normal 40-60 [facility] Comment on above: Performed By: #### L IPID, TSH, CMP, T7 #### [facility] [address] [address] [address] Merly Larios Cholesterol in LDL [Mass/Vol] 105.4 mg/dL Normal [facility] Comment on above: Performed By: #### L IPID, TSH, CMP, T7 #### [facility] [address] [address] [address] Merly Larios Cholesterol.total/Cho lesterol in HDL [Mass ratio] 3.3 {ratio} Normal [facility] Comment on above: Performed By: #### L IPID, TSH, CMP, T7 #### [facility] [address] [address] [address] eMrly Larios HDL NORMAL > or = 60 mg/dl - LO W CARDIOVASCULAR RISK <40 mg/dl - HIGH CARDIOVASCULAR RISK Normal [facility] Comment on above: Performed By: #### L IPID, TSH, CMP, T7 #### [facility] [address] [address] [address] Merly Larios LDL CALC NORMAL SEE BELOW Normal [facility] Comment on above: Result Comment: <100 mg/dl OPTIMAL 100 - 129 mg/dl NEAR OR ABOVE OPTIMAL 130 - 159 mg/dl BORDERLINE HIGH 160 - 189 mg/dl HIGH >190 mg/dl VERY HIGH Performed By: #### L IPID, TSH, CMP, T7 #### [facility] [address] [address] [address] Merly Larios Triglyceride [Mass/Vol] 93 mg/dL Normal <=150 [facility] Comment on above: Performed By: #### L IPID, TSH, CMP, T7 #### [facility] [address] [address] [address] Merly Larios VLDL CALC 18.6 mg/dL Normal [facility] Comment on above: Performed By: #### L IPID, TSH, CMP, T7 #### [facility] [address] [address] [address] Merly Larios OCC BLD IMMUNO SCREENon 10-08 OCCULT BLOOD Negative Normal NEGATIVE [facility] Comment on above: Performed By: #### O BSCRN #### [facility] [address] [address] [address] Merly Larios PROF 14(COMP METB)on 023 Albumin [Mass/Vol] 4.0 g/dL Normal 3.4-5.0 [facility] Comment on above: Performed By: #### L IPID, TSH, CMP, T7 #### [facility] [address] [address] [address] Merly Larios Albumin/Globulin [Mass ratio] 1.0 {ratio} Normal [facility] Comment on above: Performed By: #### L IPID, TSH, CMP, T7 #### [facility] [address] [address] [address] Merly Larios ALP [Catalytic activity/Vol] 104 U/L Normal 46-116 [facility] Comment on above: Performed By: #### L IPID, TSH, CMP, T7 #### [facility] [address] [address] [address] Merly Larios ALT [Catalytic activity/Vol] 24 U/L Normal 14-59 [facility] Comment on above: Performed By: #### L IPID, TSH, CMP, T7 #### [facility] [address] [address] [address] Merly Larios Anion gap [Moles/Vol] 12.8 mmol/L Normal [facility] Comment on above: Performed By: #### L IPID, TSH, CMP, T7 #### [facility] [address] [address] [address] Merly Larios AST [Catalytic activity/Vol] 17 U/L Normal 15-37 [facility] Comment on above: Performed By: #### L IPID, TSH, CMP, T7 #### [facility] [address] [address] [address] Merly Larios Bilirubin [Mass/Vol] 0.6 mg/dL Normal 0.2-1.0 [facility] Comment on above: Performed By: #### L IPID, TSH, CMP, T7 #### [facility] [address] [address] [address] Merly Larios Calcium [Mass/Vol] 9.4 mg/dL Normal 8.5-10.1 [facility] Comment on above: Performed By: #### L IPID, TSH, CMP, T7 #### [facility] [address] [address] [address] Merly Larios Chloride [Moles/Vol] 105 mmol/L Normal 98-107 [facility] Comment on above: Performed By: #### L IPID, TSH, CMP, T7 #### [facility] [address] [address] [address] Merly Larios CO2 [Moles/Vol] 28.3 mmol/L Normal 21.0-32.0 [facility] Comment on above: Performed By: #### L IPID, TSH, CMP, T7 #### [facility] [address] [address] [address] Merly Larios Creatinine [Mass/Vol] 0.75 mg/dL Normal 0.55-1.02 [facility] Comment on above: Performed By: #### L IPID, TSH, CMP, T7 #### [facility] [address] [address] [address] Merly Larios EGFR-AF SAMMARINESE >60 Normal >=60 [facility] Comment on above: Performed By: #### L IPID, TSH, CMP, T7 #### [facility] [address] [address] [address] Merly Larios EGFR-NON AF SAMMARINESE >60 Normal >=60 [facility] Comment on above: Performed By: #### L IPID, TSH, CMP, T7 #### [facility] [address] [address] [address] Merly Larios Globulin (S) [Mass/Vol] 3.9 g/dL Normal [facility] Comment on above: Performed By: #### L IPID, TSH, CMP, T7 #### [facility] [address] [address] [address] Merly Larios Glucose [Mass/Vol] 102 mg/dL Normal 74-106 [facility] Comment on above: Performed By: #### L IPID, TSH, CMP, T7 #### [facility] [address] [address] [address] Merly Larios Potassium [Moles/Vol] 4.1 mmol/L Normal 3.5-5.1 [facility] Comment on above: Performed By: #### L IPID, TSH, CMP, T7 #### [facility] [address] [address] [address] Merly Larios Protein [Mass/Vol] 7.9 g/dL Normal 6.4-8.2 [facility] Comment on above: Performed By: #### L IPID, TSH, CMP, T7 #### [facility] [address] [address] [address] Merly Larios Sodium [Moles/Vol] 142 mmol/L Normal 136-145 [facility] Comment on above: Performed By: #### L IPID, TSH, CMP, T7 #### [facility] [address] [address] [address] Merly Larios Urea nitrogen [Mass/Vol] 14.0 mg/dL Normal 7.0-18.0 [facility] Comment on above: Performed By: #### L IPID, TSH, CMP, T7 #### [facility] [address] [address] [address] Merly Larios Urea nitrogen/Creatinine [Mass ratio] 18.7 mg/mg Normal [facility] Comment on above: Performed By: #### L IPID, TSH, CMP, T7 #### [facility] [address] [address] [address] Merly Larios TSHon 10-19-2022 TSH 0.287 uIU/mL Critically low 0.358-3.740 [facility] Comment on above: Performed By: #### L IPID, TSH, CMP, T7 #### [facility] [address] [address] [address] Merly Larios XR DEXA BONE DENSITYon [...] authenticated by: JAN REYES Date: 2022-07-12 09:33 [facility] PAP ACOG PANEL 2: 30 to 65on 02-01-2022 . . Normal [facility] Comment on above: Result Comment: Perf ormed at: WB Performed By: #### [id number] #### [facility] [address] [place] [address] Dr. Merly Larios Age Gdln ACOG Testing 30-65 [facility] Comment on above: Performed By: #### [id number] #### [facility] [address] [place] [address] Dr. Merly Larios DIAGNOSIS: Comment [facility] Comment on above: Result Comment: NEGA TIVE FOR INTRAEPITHELIAL LESION OR MALIGNANCY. Performed at: WB Performed By: #### [id number] #### [facility] [address] [place] [address] Dr. Merly Larios HPV Aptima Negative Normal Negative [facility] Comment on above: Result Comment: This nucleic acid amplification test detects fourteen high-risk HPV types (16,18,31,33,35,39,45,51,52,56,58,59,66,68) without differentiation. Performed at: =G Performed By: #### [id number] #### [facility] [address] [place] [address] Dr. Merly Larios Methodology: CTIM Normal [facility] Comment on above: Result Comment: The [employer]) Multimedia Manager was unable to read this specimen. Therefore a manual review was performed. Performed at: WB Performed By: #### [id number] #### [facility] [address] [place] [address] Dr. Merly Larios Note: Comment Normal [facility] Comment on above: Result Comment: The Pap smear is a screening test designed to aid in the detection of premalignant and malignant conditions of the uterine cervix. It is not a diagnostic procedure and should not be used as the sole means of detecting cervical cancer. Both false-positive and false-negative reports do occur. . Performed at: WB Performed By: #### [id number] #### [facility] [address] [place] [address] Dr. Merly Larios Performed by: Comment Normal [facility] Comment on above: Result Comment: Shaq Carvalho, Broadcast Operations Technician (ASCP) Performed at: WB Performed By: #### [id number] #### [facility] [address] [place] [address] Dr. Merly Larios Specimen adequacy: Comment Normal [facility] Comment on above: Result Comment: Sati sfactory for evaluation. Endocervical and/or squamous metaplastic cells (endocervical component) are present. Performed at: WB Performed By: #### [id number] #### [facility] [address] [place] [address] Dr. Merly Larios MG MAMM SCREEN 3D DAVINA CADon 11-16-2021 MG MAMM SCREEN 3D DAVINA CAD Patient: EUGENE DONOVAN Exam Date: 11/16/2021 : 1970 Gender:F Ordering : DR ANGEL MAXWELL . Admission #: [id number] Family : Order #: [id number] CLICK HERE TO VIEW EXAM RADIOLOGY REPORT [...] at age 72. LOCATION: [facility] BREAST COMPOSITION: Scattered areas fibroglandular density. FINDINGS: [...] 11/16/2021 at 09:14 Normal [facility] INSULINon 10-26-2021 Insulin 13.6 uIU/mL Normal 2.6-24.9 [facility] Comment on above: Performed By: #### L IPID, TSH, CMP, T7 #### [facility] [address] [place] [address] Dr. Merly Larios CBC AUTO DIFFon 10-25-2021 BASO # 0.1 103/ul Normal 0.0-0.1 [facility] Comment on above: Performed By: #### L IPID, TSH, CMP, T7 #### [facility] [address] [address] [address] Merly Larios Basophils/100 WBC (Bld) 1.1 % Normal 0.2-2.0 [facility] Comment on above: Performed By: #### L IPID, TSH, CMP, T7 #### [facility] [address] [place] [address] Dr. Merly Larios EO # 0.2 103/ul Normal 0.0-0.7 [facility] Comment on above: Performed By: #### L IPID, TSH, CMP, T7 #### [facility] [address] [place] [address] Dr. Merly Larios Eosinophils/100 WBC (Bld) 3.0 % Normal 0.9-7.0 [facility] Comment on above: Performed By: #### L IPID, TSH, CMP, T7 #### [facility] [address] [place] [address] Dr. Merly Larios Erythrocyte distribution width (RBC) [Ratio] 12.7 % Normal 11.0-15.0 [facility] Comment on above: Performed By: #### L IPID, TSH, CMP, T7 #### [facility] [address] [place] [address] Dr. Merly Larios Hematocrit (Bld) [Volume fraction] 43.6 % Normal 36.0-48.0 [facility] Comment on above: Performed By: #### L IPID, TSH, CMP, T7 #### [facility] [address] [place] [address] Dr. Merly Larios Hemoglobin (Bld) [Mass/Vol] 14.2 g/dL Normal 12.0-16.0 [facility] Comment on above: Performed By: #### L IPID, TSH, CMP, T7 #### [facility] [address] [place] [address] Dr. Merly Larios IG # 0.01 10e3/ul Normal 0.00-0.03 [facility] Comment on above: Performed By: #### L IPID, TSH, CMP, T7 #### [facility] [address] [place] [address] Dr. Merly Larios IG % 0.2 % Normal 0.0-0.5 [facility] Comment on above: Performed By: #### L IPID, TSH, CMP, T7 #### [facility] [address] [place] [address] Dr. Merly Larios LYMPH # 1.5 103/ul Normal 1.2-3.8 [facility] Comment on above: Performed By: #### L IPID, TSH, CMP, T7 #### [facility] [address] [place] [address] Dr. Merly Larios Lymphocytes/100 WBC (Bld) 27.5 % Normal 20.5-60.0 [facility] Comment on above: Performed By: #### L IPID, TSH, CMP, T7 #### [facility] [address] [place] [address] Dr. Merly Larios MANUAL DIFF REQ NO Normal [facility] [place] Comment on above: Performed By: #### L IPID, TSH, CMP, T7 #### [facility] [address] [place] [address] Dr. Merly Larios MCH (RBC) [Entitic mass] 28.3 pg Normal 26.7-34.0 [facility] Comment on above: Performed By: #### L IPID, TSH, CMP, T7 #### [facility] [address] [place] [address] Dr. Merly Larios MCHC (RBC) [Mass/Vol] 32.6 g/dL Normal 29.9-35.2 [facility] Comment on above: Performed By: #### L IPID, TSH, CMP, T7 #### [facility] [address] [place] [address] Dr. Merly Larios MCV (RBC) [Entitic vol] 87.0 fL Normal 81.0-99.0 [facility] Comment on above: Performed By: #### L IPID, TSH, CMP, T7 #### [facility] [address] [place] [address] Dr. Merly Larios MONO # 0.5 103/ul Normal 0.3-0.8 [facility] Comment on above: Performed By: #### L IPID, TSH, CMP, T7 #### [facility] [address] [place] [address] Dr. Merly Larios Monocytes/100 WBC (Bld) 9.1 % Normal 1.7-12.0 [facility] Comment on above: Performed By: #### L IPID, TSH, CMP, T7 #### [facility] [address] [address] [address] Merly Larios NEUT # 3.1 103/ul Normal 1.4-6.5 [facility] Comment on above: Performed By: #### L IPID, TSH, CMP, T7 #### [facility] [address] [place] [address] Dr. Merly Larios Neutrophils/100 WBC (Bld) 59.1 % Normal 43.0-75.0 [facility] Comment on above: Performed By: #### L IPID, TSH, CMP, T7 #### [facility] [address] [place] [address] Dr. Merly Larios Platelet mean volume (Bld) [Entitic vol] 9.5 fL Normal 9.5-13.5 [facility] Comment on above: Performed By: #### L IPID, TSH, CMP, T7 #### [facility] [address] [place] [address] Dr. Merly Larios PLT 208 103/ul Normal 150-450 [facility] Comment on above: Performed By: #### L IPID, TSH, CMP, T7 #### [facility] [address] [place] [address] Dr. Merly Larios RBC 5.01 106/ul Normal 4.20-5.40 [facility] Comment on above: Performed By: #### L IPID, TSH, CMP, T7 #### [facility] [address] [place] [address] Dr. Merly Larios WBC 5.3 103/ul Normal 4.0-11.0 [facility] Comment on above: Performed By: #### L IPID, TSH, CMP, T7 #### [facility] [address] [place] [address] Dr. Merly Larios FREE THYROXINE INDEX T7on FTI 3.65 Normal [facility] Comment on above: Performed By: #### L IPID, TSH, CMP, T7 #### [facility] [address] [place] [address] Dr. Merly Larios T3U 32.0 % Normal 23.5-40.5 [facility] Comment on above: Performed By: #### L IPID, TSH, CMP, T7 #### [facility] [address] [address] [address] Merly Larios T4 [Mass/Vol] 11.40 ug/dL Critically high 5.53-11.00 [facility] Comment on above: Performed By: #### L IPID, TSH, CMP, T7 #### [facility] [address] [address] [address] Merly Larios GLYCOHEMOGLOBIN A1Con 2021 ADA RECOMMENDATION ADA THERAPEUTIC TARGET 6.0 - 7.0 ACTION SUGGESTED > 7.0 Normal [facility] Comment on above: Performed By: #### A 1C #### [facility] [address] [address] [address] Merly Larios Glucose [Mass/Vol] 105 mg/dL Normal [facility] Comment on above: Performed By: #### A 1C #### [facility] [address] [address] [address] Merly Larios HbA1c (Bld) [Mass fraction] 5.3 % Normal <=6.0 [facility] Comment on above: Performed By: #### A 1C #### [facility] [address] [place] [address] Dr. Melry Larios IRONon 10-25-2021 Iron [Mass/Vol] 99.0 ug/dL Normal 37.0-170.0 [facility] Comment on above: Performed By: #### L IPID, TSH, CMP, T7 #### [facility] [address] [address] [address] Merly Larios LIPID PROFILEon 10-25-2021 CHOL-HDL RATIO NORM SEE BELOW Normal [facility] Comment on above: Result Comment: 3.3 - 4.4 LOW RISK 4.4 - 7.1 AVERAGE RISK 7.1 - 11.0 MODERATE RISK >11.0 HIGH RISK Performed By: #### L IPID, TSH, CMP, T7 #### [facility] [address] [place] [address] Dr. Merly Larios Cholesterol [Mass/Vol] 174 mg/dL Normal <=200 [facility] Comment on above: Performed By: #### L IPID, TSH, CMP, T7 #### [facility] [address] [address] [address] Melry Larios Cholesterol in HDL [Mass/Vol] 50 mg/dL Normal [facility] Comment on above: Performed By: #### L IPID, TSH, CMP, T7 #### [facility] [address] [address] [address] Merly Larios Cholesterol in LDL [Mass/Vol] 105.2 mg/dL Normal [facility] Comment on above: Performed By: #### L IPID, TSH, CMP, T7 #### [facility] [address] [address] [address] Merly Larios Cholesterol.total/Cho lesterol in HDL [Mass ratio] 3.5 {ratio} Normal [facility] Comment on above: Performed By: #### L IPID, TSH, CMP, T7 #### [facility] [address] [address] [address] Merly Larios HDL NORMAL > or = 60 mg/dl - LO W CARDIOVASCULAR RISK <40 mg/dl - HIGH CARDIOVASCULAR RISK Normal [facility] Comment on above: Performed By: #### L IPID, TSH, CMP, T7 #### [facility] [address] [address] [address] Merly Larios LDL CALC NORMAL SEE BELOW Normal [facility] Comment on above: Result Comment: <100 mg/dl OPTIMAL 100 - 129 mg/dl NEAR OR ABOVE OPTIMAL 130 - 159 mg/dl BORDERLINE HIGH 160 - 189 mg/dl HIGH >190 mg/dl VERY HIGH Performed By: #### L IPID, TSH, CMP, T7 #### [facility] [address] [address] [address] Merly Larios Triglyceride [Mass/Vol] 94 mg/dL Normal <=150 [facility] Comment on above: Performed By: #### L IPID, TSH, CMP, T7 #### [facility] [address] [address] [address] Merly Larios VLDL CALC 18.8 mg/dL Normal [facility] Comment on above: Performed By: #### L IPID, TSH, CMP, T7 #### [facility] [address] [address] [address] Merly Larios OCC BLD IMMUNO SCREENon 10-08 OCCULT BLOOD Negative Normal NEGATIVE [facility] Comment on above: Performed By: #### O BSCRN #### [facility] [address] [address] [address] Merly Larios PROF 14(COMP METB)on 022 Albumin [Mass/Vol] 3.8 g/dL Normal 3.5-5.0 [facility] Comment on above: Performed By: #### L IPID, TSH, CMP, T7 #### [facility] [address] [place] [address] Dr. Merly Larios Albumin/Globulin [Mass ratio] 1.0 {ratio} Normal [facility] Comment on above: Performed By: #### L IPID, TSH, CMP, T7 #### [facility] [address] [address] [address] Merly Larios ALP [Catalytic activity/Vol] 98 U/L Normal 38-126 [facility] Comment on above: Performed By: #### L IPID, TSH, CMP, T7 #### [facility] [address] [place] [address] Dr. Merly Larios ALT [Catalytic activity/Vol] 30 U/L Normal 9-52 [facility] Comment on above: Performed By: #### L IPID, TSH, CMP, T7 #### [facility] [address] [address] [address] Merly Larios Anion gap [Moles/Vol] 14.1 mmol/L Normal [facility] Comment on above: Performed By: #### L IPID, TSH, CMP, T7 #### [facility] [address] [address] [address] Merly Larios AST [Catalytic activity/Vol] 16 U/L Normal 14-36 [facility] Comment on above: Performed By: #### L IPID, TSH, CMP, T7 #### [facility] [address] [place] [address] Dr. Merly Larios Bilirubin [Mass/Vol] 0.4 mg/dL Normal 0.2-1.3 [facility] Comment on above: Performed By: #### L IPID, TSH, CMP, T7 #### [facility] [address] [place] [address] Dr. Merly Larios Calcium [Mass/Vol] 9.8 mg/dL Normal 8.4-10.2 [facility] Comment on above: Performed By: #### L IPID, TSH, CMP, T7 #### [facility] [address] [place] [address] Dr. Merly Larios Chloride [Moles/Vol] 106 mmol/L Normal 98-107 [facility] Comment on above: Performed By: #### L IPID, TSH, CMP, T7 #### [facility] [address] [place] [address] Dr. Merly Larios CO2 [Moles/Vol] 26.1 mmol/L Normal 22.0-30.0 [facility] Comment on above: Performed By: #### L IPID, TSH, CMP, T7 #### [facility] [address] [place] [address] Dr. Merly Larios Creatinine [Mass/Vol] 0.80 mg/dL Normal 0.52-1.04 [facility] Comment on above: Performed By: #### L IPID, TSH, CMP, T7 #### [facility] [address] [place] [address] Dr. Merly Larios EGFR-AF SAMMARINESE >60 Normal >=60 [facility] Comment on above: Performed By: #### L IPID, TSH, CMP, T7 #### [facility] [address] [place] [address] Dr. Merly Larios EGFR-NON AF SAMMARINESE >60 Normal >=60 [facility] Comment on above: Performed By: #### L IPID, TSH, CMP, T7 #### [facility] [address] [place] [address] Dr. Merly Larios Globulin (S) [Mass/Vol] 3.8 g/dL Normal [facility] Comment on above: Performed By: #### L IPID, TSH, CMP, T7 #### [facility] [address] [address] [address] Merly Larios Glucose [Mass/Vol] 109 mg/dL Critically high 74-106 [facility] Comment on above: Performed By: #### L IPID, TSH, CMP, T7 #### [facility] [address] [address] [address] Merly Larios Potassium [Moles/Vol] 4.2 mmol/L Normal 3.4-5.0 [facility] Comment on above: Performed By: #### L IPID, TSH, CMP, T7 #### [facility] [address] [address] [address] Merly Larios Protein [Mass/Vol] 7.6 g/dL Normal 6.1-8.2 [facility] Comment on above: Performed By: #### L IPID, TSH, CMP, T7 #### [facility] [address] [address] [address] Merly Larios Sodium [Moles/Vol] 142 mmol/L Normal 137-145 [facility] Comment on above: Performed By: #### L IPID, TSH, CMP, T7 #### [facility] [address] [address] [address] Melry Larios Urea nitrogen [Mass/Vol] 13.0 mg/dL Normal 7.0-17.0 [facility] Comment on above: Performed By: #### L IPID, TSH, CMP, T7 #### [facility] [address] [address] [address] Merly Larios Urea nitrogen/Creatinine [Mass ratio] 16.2 mg/mg Normal [facility] Comment on above: Performed By: #### L IPID, TSH, CMP, T7 #### [facility] [address] [address] [address] Merly Larios TSHon 10-25-2021 TSH 0.315 uIU/mL Critically low 0.470-4.680 [facility] Comment on above: Performed By: #### L IPID, TSH, CMP, T7 #### [facility] [address] [place], [place] [address] Dr. Merly Larios TSH RANGE SEE BELOW Normal [facility] Comment on above: Result Comment: <0.3 4 UIU/ml HYPERTHYROID 0.34-5.60 UIU/ml EUTHYROID >5.60 UIU/ml HYPOTHYROID Performed By: #### L IPID, TSH, CMP, T7 #### [facility] [address] [place], [place] [address] Dr. Merly Larios Encounters Encounter Date Encounter Type Care Provider Facility Start: 10-19-2022 End: 10-20-[address] ANGEL MAXWELL Facility:[facility] Start: 07-12-2022 End: 07-13-[address] ANGEL MAXWELL Facility:[facility] Start: 01-26-2022 End: 01-26-[address] ANGEL MAXWELL Facility:[facility] Start: 11-16-2021 End: 11-17-[address] ANGEL MAXWELL Facility:[facility] Start: 10-27-2021 Encounter for genera l adult medical examination without abnormal findings DR ANGEL MAXWELL [facility] Start: 10-25-2021 End: 10-26-[address] ANGEL MAXWELL Facility:[facility] Start: 10-25-2021 End: 10-26-2021 Encounter for general adult medical examination without abnormal findings DR ANGEL MAXWELL Facility:[facility] Start: 04-08-2018 End: 04-09-2018 Ambulatory DEFAULT PHYSICIAN Facility:[facility] Payers Date Payer Category Payer Unknown [id number] 2.16.84 [id number] 1970 Unknown [id number] 2.16.84 [id number] 1971 Unknown [id number] 2.16.84 [id number] 1971 Unknown [id number] 2.16.84 [id number] 1971 Unknown [id number] 2.16.84 [id number] 1959 Private Health Insurance [id number] 1958 Unknown [id number] Unknown Summary Purpose Family History No Family History Records FoundNo Family History Records Found Advance Directives No Advanced Directives Records FoundNo Advanced Directives Records Found Additional Source Comments INFORMATION SOURCE (unrecogn ized section and content) DATE CREATED AUTHOR 04/09/2018 [facility] DATE CREATED AUTHOR AUTHOR'S ORGANIZ ATION 10/20/2022 [facility] FOR RECORDS PERTAINING TO PATIENTS WHO ARE [...] BE BASED ON THE PRIMARY CLINICAL RECORDS. [facility] [facility]. provides no warranty or guarantee of the accuracy or completeness of information in this document.
[2024-12-01 12:44] LABS: Free T3 2.84 pg/mL (2.18-3.98); Thyroid Stimulating Hormone 0.109 uIU/mL (0.358-3.740)
== END 2024-12-01 11:46 | disposition home or self-care (01) ==
PROVIDERS: PCP Family Medicine; Visit Provider Family Medicine
DX: E03.9 Hypothyroidism, unspecified (principal)
CPT/HCPCS: 36415; 84436; 84443; 84481